=== PATIENT | female | born 1965 | race Caucasian/White ===

== ENCOUNTER → 2017-11-06 19:03 | Outpatient (CLI) | payer SELFPAY | PROVIDERS: Visit Provider Physician Assistant Surgical | DX: J02.9 Acute pharyngitis, unspecified (principal) | CPT/HCPCS: 87081 ==

== ENCOUNTER → 2020-06-21 14:52 | Outpatient (CLI) | payer MEDICAID, SELFPAY ==
[2020-06-21 14:40] VITALS: BMI 29.4
[2020-06-21 17:01] LABS: Vitamin D,25 Hydroxy 11.7 ng/mL
[2020-06-21 17:02] LABS: T4 Free Direct 0.89 ng/dL (0.76-1.46); Thyroid Stim Hormone (TSH) 3.04 uIU/mL (0.358-3.74)
== END ==
PROVIDERS: Referring Provider Internal Medicine Endocrinology, Diabetes & Metabolism; Visit Provider Internal Medicine Endocrinology, Diabetes & Metabolism
DX: E05.00 Thyrotoxicosis with diffuse goiter without thyrotoxic crisis or storm (principal); E55.9 Vitamin D deficiency, unspecified
CPT/HCPCS: 36415; 82306; 84439; 84443; 84481

== ENCOUNTER 2020-06-28 07:45 | Day surgery (SDC) | payer MEDICAID, SELFPAY ==
[2020-06-21 14:40] VITALS: BMI 29.4
[2020-06-28 08:08] VITALS: BP 107/53; PULSE 57; RESP 14; TEMP 36.8; O2SAT 96
--- NOTE | 2020-06-28 09:14 | RAD_ITS ---
STUDY: X-RAY - PELVIS AND RIGHT HIP REASON FOR EXAM: Right hip intra-articular steroid injection. TECHNIQUE: 2 fluoroscopic images of the pelvis and hip. COMPARISON: None. FINDINGS: There is intra-articular contrast in the right hip joint. There is right hip arthrosis. 11.4 seconds of fluoroscopy time was used. Electronically Signed: Obi Pedersen MD at 14:58 EST Tel , Service support , RAD/Fluoro Guided Needle Placement
--- NOTE | 2020-06-28 09:14 | PCM.OPRPT ---
Report of Operation Date of Procedure: 06/28/20 Description of Surgical Findings:: PREOPERATIVE DIAGNOSIS: Osteoarthritis of the right hip POSTOPERATIVE DIAGNOSIS: Osteoarthritis of the right hip PROCEDURE PERFORMED: Right hip intraarticular steroid injection under fluoroscopy guidance. ANESTHESIA: MAC. BLOOD LOSS: Minimal. COMPLICATIONS: None. DESCRIPTION OF PROCEDURE: History and physical of today was reviewed. Risks and benefits of the procedure were explained. The patient understood and agreed to proceed. Informed consent was obtained. IV inserted per routine protocol. The patient was taken to the operating room and placed in the supine position. The right hip area was prepped and draped in a sterile fashion using iodine x3. Under fluoroscopy guidance on AP view, the right hip joint was visualized. The skin and subcutaneous tissue was anesthetized with approximately 3 mL of 1% lidocaine using a 25-gauge regular needle approximately 3 cm cephalad to the right greater trochanter. Under direct visualization with fluoroscopy on an AP view, using a 22-gauge 5-inch spinal needle, the needle was advanced via the skin using the lateral approach. The tip of the needle was maneuvered and directed towards the superiormost aspect of the hip joint. Once the tip of the needle was at the vicinity of the joint, after negative aspiration for blood and positive aspiration of synovial fluid, a total of 1 mL of contrast was injected to confirm correct placement of the needle as well as halo spread around the hip joint. After repeated negative aspiration for blood and confirmation on AP as well as oblique view, a total of 10 mL of preservative-free 0.25% Marcaine with 80 mg of Depo-Medrol was injected easily. The needle was then removed intact. The patient experienced no sign or symptoms of intrathecal or intravascular injection. The patient experienced no paresthesia. The procedure was completed without any apparent difficulty or any complications. The patient appeared to tolerate it well. ASSESSMENT AND PLAN: This is a 55-year-old female with osteoarthritis of the right hip status post right hip intra-articular steroid injection under fluoroscopic guidance, patient will continue her current medications, patient will follow in approximately 2 weeks for reevaluation.
[2020-06-28] MEDS: MethylPREDNISolone Acetate 40 MG/ML Vial IM (09:32)
[2020-06-28] MEDS: Bupivacaine 0.25% 30 ML Vial (09:32)
[2020-06-28] MEDS: Lidocaine 1% (5 ml sdv) 5 ML Vial (09:33)
[2020-06-28 09:40] VITALS: BP 107/53; BP 113/60; PULSE 62; RESP 16; TEMP 36.4; O2SAT 97
[2020-06-28 09:45] VITALS: BP 104/43; BP 107/53; PULSE 72; RESP 16; O2SAT 97
[2020-06-28 09:50] VITALS: BP 102/60; BP 107/53; PULSE 63; RESP 16; O2SAT 97
[2020-06-28 09:55] VITALS: BP 101/67; BP 107/53; PULSE 54; RESP 16; TEMP 36.4; O2SAT 97
[2020-06-28 10:19] VITALS: BP 107/53
== END 2020-06-28 10:21 | disposition home or self-care (01) ==
LOC: SDC 07:46 → AC 07:47
PROVIDERS: PCP Student in an Organized Health Care Education/Training Program; Referring Provider Anesthesiology Pain Medicine; Visit Provider Anesthesiology Pain Medicine
PROC: 3E0U3GC Introduction of Other Therapeutic Substance into Joints, Percutaneous Approach (ICD-10-PCS; CPT 20610; principal; 2020-06-28 09:15)
DX: M16.11 Unilateral primary osteoarthritis, right hip (principal); I10 Essential (primary) hypertension; J43.9 Emphysema, unspecified; E05.00 Thyrotoxicosis with diffuse goiter without thyrotoxic crisis or storm; M79.7 Fibromyalgia; F17.200 Nicotine dependence, unspecified, uncomplicated; Z79.891 Long term (current) use of opiate analgesic; Z79.899 Other long term (current) drug therapy
CPT/HCPCS: 20610; 76000; 77002; J7120

== ENCOUNTER → 2020-10-11 10:58 | Outpatient (CLI) | payer MEDICAID, SELFPAY ==
[2020-10-11 12:40] LABS: Free T3 2.3 pg/mL (2.18-3.98); Thyroid Stim Hormone (TSH) 2.68 uIU/mL (0.358-3.74)
== END ==
PROVIDERS: PCP Student in an Organized Health Care Education/Training Program; Visit Provider Internal Medicine Endocrinology, Diabetes & Metabolism
DX: E05.00 Thyrotoxicosis with diffuse goiter without thyrotoxic crisis or storm (principal)
CPT/HCPCS: 36415; 84439; 84443; 84481

== ENCOUNTER 2021-09-07 12:55 | Outpatient (CLI) | payer MEDICAID, SELFPAY ==
--- NOTE | 2021-09-07 13:01 | RAD_ITS ---
: 1965 CLINICAL INDICATION: HIP PAIN, LEG LENGTH DISCREPANCY TECHNIQUE: X-ray bone length studies scanograms. This report was created using [email or web address] report generation technology. COMPARISON: None. FINDINGS: Single image of the right and left legs were obtained. The right femoral head is approximately 2 cm higher than the left femoral head. There is a total left knee prosthesis in good position. The medial left knee joint is approximately 1 cm higher on the right than on the left. The right ankle joint is approximately half a centimeter higher than the left ankle joint. RAD/Bone Length IMPRESSION: Elevation of the right femoral head, knee joint and ankle joint compared to the left. The right femoral head is 2 cm higher than the left femoral head. at 0236 Reported and signed by: Wild Hanley MD Electronically Signed: Wild Hanley MD at 2:35 EDT ,
== END 2021-09-07 23:59 | disposition home or self-care (01) ==
LOC: MTRAD 12:58
PROVIDERS: PCP Student in an Organized Health Care Education/Training Program; Referring Provider Physician Assistant Surgical; Visit Provider Physician Assistant Surgical
DX: M25.552 Pain in left hip (principal); M21.70 Unequal limb length (acquired), unspecified site
CPT/HCPCS: 77073

== ENCOUNTER 2021-09-19 13:16 | Outpatient (CLI) | payer MEDICAID, SELFPAY ==
[2021-09-19 15:36] LABS: Vitamin D,25 Hydroxy 29.8 ng/mL
[2021-09-19 15:51] LABS: Free T3 2.1 pg/mL (2.18-3.98); Thyroid Stim Hormone (TSH) 1.93 uIU/mL (0.358-3.74)
== END 2021-09-19 23:59 | disposition home or self-care (01) ==
LOC: BIMLAB 13:17
PROVIDERS: Nurse Practitioner Family; PCP Student in an Organized Health Care Education/Training Program; Referring Provider Internal Medicine Endocrinology, Diabetes & Metabolism; Visit Provider Internal Medicine Endocrinology, Diabetes & Metabolism
DX: E05.00 Thyrotoxicosis with diffuse goiter without thyrotoxic crisis or storm (principal)
CPT/HCPCS: 36415; 82306; 84439; 84443; 84481

== ENCOUNTER 2021-12-14 11:19 | Observation (INO) | payer MEDICARE, MEDICAID, SELFPAY ==
--- NOTE | 2021-12-02 11:21 | PCM.HP.BLA ---
History and Physical History and Physical? Patient Name: Mireille Redman: 1965 From:? BRIGITTE FRAGA PA-C? DATE OF SURGERY:? 12/14/2021 SCHEDULED PROCEDURE: direct anterior right total hip arthroplasty HISTORY OF PRESENT ILLNESS: Patient is a 56-year-old female with a chief complaint of left hip pain. Patient complains of pain with 2 year duration. The pain is 8 on a scale of 10. The pain is increased with weightbearing and activities of daily living including donning and doffing close. Patient reports start up pain. The pain is located over the groin. The patient states that the pain does awaken them at night. Activity modification include a reduced ability to perform activities of daily living. The patient does perceive that the affected leg is shorter than the other. or specifically, patient's major concern is that after having a left knee replacement the left leg feels 2 inches longer than the right previous scanogram was performed.? She is adamant that this leg length discrepancy did not exist prior to her left knee replacement. Previous treatments include physical therapy, pain management and oxycodone pain medications.? Additionally patient takes nonsteroidal anti-inflammatories for the pain.? All of which have offered minimal relief. REVIEW OF SYSTEMS: Review Of Systems: Constitutional: Reports change in appetite and weight change, but denies fever. Cardiovasular: Reports irregular heartbeat, but denies chest pain and heart murmur. Respiratory: Denies cough, pneumonia, shortness of breath, tuberculosis and wheezing. Gastrointestinal: Denies constipation, diarrhea, dysphagia, heartburn, nausea, rectal itching, bloody stools and vomiting. Genitourinary: . (F Genital Sx) Denies incontinence. Musculoskeletal: Reports gait disturbance, leg swelling, pain, trouble walking and weakness. Skin: Reports tattoo, but denies Raynaud's and history of shingles. Neurological: Reports ambulatory dysfunction and numbness/tingling but denies dizziness and tremor. Psychiatric: Reports anxiety, insomnia and stress. Hematologic/Lymphatic: Denies anemia, bleeding/bruising tendency and past transfusion. Reviewed and updated. PAST MEDICAL HISTORY: Advance Care Plan: No Advance Directives Effective Date: 08/01/2019 Past Medical History: Medical Problems: Emphysema, High Blood Pressure, Thyroid Disease, Graves Disease Accidents: None Surgical Hx: Gallbladder - (2008) [facility] Knee Replacement Lt - (11/24/2019) [facility] Anesthesia Complications: None Assistive Devices: Glasses - READING, DRIVING, Walker, Cane Reviewed and updated. 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 Personal Habits:? Cigarette Use: Light tobacco smoker (10 or fewer cigarettes/day).Smokeless Tobacco: Never Used Smokeless Tobacco.E-Cigarette Use: E-Cigarette Use.Alcohol: Has consumed alcohol in the past.Drug Use: Denies Use.Enjoy Exercising: Never Exercises. Reviewed and updated. VITALS: Ht: 65 Wt: 190lb Wt k.184 BMI: 31.6 BP: 138/90 Pulse: 85 Resp: 14 T: 97.1 T: 36.2C Pain Level: 9 O2SatR: 99 ALLERGIES: No Known Drug Allergy? MEDICATIONS: Meloxicam 7.5 mg 1 by mouth twice a day, Lisinopril 10 mg 1po qday, G-1 325 mg 1poq day, Albuterol Inhaler? 2 puffs as needed, Duloxetine HCL 60 mg 2 By mouth every day, Tylenol 8 Hour Arthritis Pain 650 mg every 4 hour as needed pain, Oxycodone HCL 5 mg 1-2 by mouth every 6 hours, Pantoprazole Sodium 40 mg 1 by mouth every day PRE-OP EXAM:? General appearance:NORMAL? ? ? Other: Eyes: Conjunctivae and lids: NORMAL? Pupils: ERR Ears, Nose, Mouth, and Throat: NORMAL? Other: Inspection of lips, teeth and gums: NORMAL? ?Other: Neck: Examination of neck: no masses noted. Respiratory: Assessment of respiratory effort: NORMAL? ?Other: ?Auscultation of lungs: clear to auscultation no wheezes, rhonchi or rales. Cardiovascular:? Auscultation of heart: regular rate and rhythm, no murmurs, gallops or rubs. Exam of carotid arteries: NORMAL? ?Other: Gastrointestinal:? Exam of abdomen: soft, nontender, nondistended bowel sounds present. Lymphatic:? Palpation of nodes in neck:? NORMAL? ? ?Other: ? Palpation of nodes in Axillae: NORMAL? ?Other: Neurological: see below Psychiatric:? Orientation to time, place and person: NORMAL? ? ?Other: ?Mood and affect: NORMAL? ?Other: PHYSICAL EXAMINATION: Exam: Const: Appears healthy.? No signs of apparent distress present.? Alert and oriented x 3.? Musculo: Antalgic gait? Hips: ?Insp/Palp: Right hip flexion 65 degrees, internal rotation neutral with reproducible groin pain, external rotation 20 degrees Left hip flexion 70 degrees with obligatory external rotation, internal rotation neutral with reproducible groin pain, external rotation 20 degrees Left knee flexion 125 degrees, full extension? Skin: Skin is warm, dry and intact.? Neuro: Sensation to light touch is intact in the lower extremities deep peroneal, lower extremities dorsal cutaneous, lower extremities saphenous, lower extremities sural and lower extremities tibial nerve distribution. IMAGING STUDIES: previous radiographs show joint space narrowing, subchondral sclerosis and osteophyte formation consistent with Severe stage IV osteoarthritis of the right hip with subchondral cysts associated with bony collapse and flattening of the femoral head.? Additionally on the pelvis x-rays patient has a tilt of the pelvis with the right iliac crest and hip Center higher than the left. additionally, patient has evidence of severe right hip osteoarthritis however without femoral head collapse at this time. 5 views of the lumbar spine AP, lateral, flexion extension laterals, and cone down L-S views reviewed with the patient today Stable alignment of the spine in the sagittal plane with mild loss of lumbar lordosis.? There is multiple levels of degenerative disc disease.? No acute fractures or bony lesions are appreciated.? In the? Coronal plane patient does have mild scoliosis with obliquity of the pelvic bony structures. Scanogram was performed the hospital it's is also reviewed.? Does show that her right hip is 2 cm higher than the left however measurements from right hip Center of rotation to set of ankle and left hip Center rotation centered the ankle show less than 5 mm difference in overall length of the extremity.? The leg length discrepancy appreciated on stimulation and by the patient likely has significant underlying etiology at her pelvic obliquity. IMPRESSION: 1. grade IV osteoarthritis Right hip 2. Emphysema 3. High Blood Pressure 4.? Thyroid Disease-Graves Disease PLAN: Patient denies history of DVT or PE, open wounds or sores over the body, no allergies to antibiotics and no current antibiotic use. No current dental issues Aspirin 81 twice a day ?4 weeks for DVT prophylaxis postoperatively At this time patient has consented to proceed with a direct anterior right total hip arthroplasty.? Dr. Vaca did discuss and review with the patient all treatment options including surgical versus nonsurgical options.? Patient does wish to proceed with the above-stated procedure.? Potential risk, benefits, and complications of the procedure were discussed in detail including but not limited to , infection, nerve and blood vessel damage, persistent pain, numbness, tingling, paresthesias, blood clot, pulmonary embolism, and requirement for possible further surgery.? The patient expressed full understanding and has no further questions for the doctor.? Patient does agree to proceed with the above-stated procedure and has signed the surgery consent form. I have reviewed the [place] Automated Rx Reporting System (OARRS) report for this patient for refill pattern and other prescriber involvement as part of the appropriate surveillance for the provision of acute and chronic controlled medications.? The report was requested and reviewed on the date of this entry and was considered in the prescribing process. Discussed with the patient the risks associated with the COVID-19 virus including the risk of exposure while at the hospital.? The patient was reassured local hospitals have low infection rates and taken all necessary precautions to limit patient exposure to COVID-19.? Limiting the patient's time in the hospital may decrease their exposure to COVID-19.? The patient was notified that we will need to comply with any screening or testing the hospital wishes to perform and that surgery may be delayed for any positive test results. ___? I have re-examined the patient.? There are no clinical changes since date of exam. ___? See progress notes for changes. ___? Dictated on admission Date: ? ? ?Time:
[2021-12-14] VITALS (12 sets, daily range): BP systolic 101–185; BP diastolic 69–92; PULSE 58–79; RESP 16–18; TEMP 36.4–36.8; O2SAT 96–100; BMI 32.3
--- NOTE | 2021-12-14 10:51 | OP.PCM_ITS ---
Report of Operation Date of Procedure: 12/14/21 Pre-Operative Diagnosis: Right hip primary osteoarthritis Post-Operative Diagnosis: Right hip primary osteoarthritis Surgery/Procedure Performed:: Right minimally invasive direct anterior total hip replacement Description of Surgical Findings:: Stable hip with equal leg length Surgeon: Heriberto Vaca handmade tile artist: Kaushik Max Type of Anesthesia: Spinal Anesthesiologist: Jose Pierce Special Medications: 2 g Ancef, 1 g TXA at incision, 1 g TXA closure, 10 mg Decadron, joint cocktail (5 mg Duramorph, 30 mL of 0.5% Ropivicaine, 1000 units of epinephrine, 30 mg of Toradol) Specimen's removed: Bony cuts Estimated Blood Loss (mL): 250 Fluids Replaced: 1500 mL crystalloid Description of Procedure: Components used: 1. Accolade 2 Brandeis femoral stem size 3 127? 2. Brandeis trident 2 acetabular shell size 52 mm 3. Cris X3 polyethylene E 4. Cris Biolox delta 36mm, -5mm femoral head Brief history operative indications: 56 yo F who failed conservative measures for their hip osteoarthritis. X-rays were consistent with osteoarthritis including joint space narrowing, osteophyte formation and subchondral cysts. Total hip replacement was discussed with the patient with risks and benefits including but not limited to blood loss, DVTs, PEs, neurovascular damage, dislocation, general risks of anesthesia including loss of life. Patient demonstrated an understanding medical clearance is obtained the patient was consented for surgery. Procedure: On the date of procedure the patient's right hip was marked in the preoperative area. Patient was then taken back to the operating room where anesthesia assumed control of the C-spine and airway and administered anesthetic. Patient was transferred to the operating table and placed in the supine position. The hips were placed at the break of the bed and a sacral bump was placed. The right lower extremity was then prepped out in a sterile fashion using chlorhexidine while the surgeon scrubbed. The PA was vital in the positioning of the patient. Upon reentering the room the right lower extremity was draped in the standard orthopedic fashion and the incision was marked. A timeout was called and everyone agreed upon the side, the site, the procedure be performed, antibody given, and patient's identity. At this time incision was made through skin, subcutaneous tissue, and fat down to fascia. The fascia was then incised and the TFL was retracted laterally. A retractor was placed on the lateral border of the femoral neck. Attention was directed to the inferior portion of the approach and all crossing vessels were identified and appropriately coagulated. A retractor was then placed on the medial portion of the femoral neck. The anterior capsule was then cleared of all soft tissue and then H shaped capsulotomy was made. The retractors were then placed inside the capsule. The femoral neck was identified and a cleanup cut was made. At this time a power corkscrew was used to remove the femoral head. Attention was then turned toward the acetabulum where the soft tissues were appropriately retracted and the acetabulum was sequentially reamed to 52 mm. A 52 mm cup was then selected and impacted into place. Acetabular liner was impacted into place and locking mechanism was verified. The position of the acetabular cup was then verified under live fluoroscopy. Attention was then turned to the femur. Soft tissue releases on the medial and lateral femoral neck were appropriately done, the leg was externally rotated and lateralized. A Finley retractor was placed medially and proximally to the greater trochanter this allowed appropriate visualization and exposure of the femoral canal. Rongeour was then used to remove excess lateral bone. A canal finder and entry broach were used to open the proximal canal. Once we verified we were down the femoral canal we subsequently broached up to a size 3 femur. The appropriate neck was placed in the previously selected head was trialed with a -5 mm neck. Traction was pulled and the hip was reduced with internal rotation. Once it was appropriately reduced and stability was checked. There was minimal shuck, equal leg lengths and appropriate stability with hyperextension and external rotation as well as with 90? flexion and internal rotation. Fluoroscopy was then also used to verify the position of the components and leg lengths using the contralateral side for comparison. The trial components were then dislocated the proximal femur was again exposed and the components were removed from the wound. The final components were verified and opened. The wound was copiously irrigated out with normal saline. The acetabulum was checked for any residual debris. The final components were placed and impacted. Traction and internal rotation were again used to reduce the hip. After adequate reduction the hip remained stable with appropriate leg lengths. The final components were once again checked with live fluoroscopy and were found to be satisfactory. The wound was then copiously irrigated with normal saline once more, and hemostasis was obtained. Closure was then done using #1 Vicryl runner to close the fascia. A 2-0 vicryl interuppted sutures were used to close the subcutaneous skin. A 3-0 Monocryl and Steri-Strips were used for final skin closure. A Silverlon dressing was placed. Patient was awakened by anesthesia and transferred to the [facility]. Patient was then transferred to the PACU for recovery. During the course of the procedure the physician professor of marketing (PE) played a vital role. Their intimate knowledge of my steps in the procedure aided in safe and expedient completion of the procedure. The PE played a vital rolls in positioning particularly in obtaining the appropriate positioning of the sacral bump. The PE was also vital in the retraction of soft tissues during the exposure and especially the femoral work as this is a vital part of the procedure to prevent complications and fractures. The PE was also vital and protecting soft tissues during times of bony cuts and reaming. He also played a vital role in closure with my direct supervision. The PE was also important during reduction and dislocation of the joint and trials intraoperatively. Postoperative plan: Patient will get 24 hours postop antibiotics. Patient will get in-house physic al therapy and will be weight-bear as tolerated. Patient will follow up in office in 2 weeks for a wound check and x-rays. Aspirin 81 mg twice daily. Complications No intraoperative complications Admit VTE Documentation VTE Present on Admission: No VTE Mechan Device Prophylaxis: SCD's and Thigh High CARRI Hose VTE Pharm Prophylaxis ordered?: Yes
--- NOTE | 2021-12-14 11:15 | RAD_ITS ---
STUDY: INTRAOPERATIVE FLUOROSCOPY TECHNIQUE: The examination was performed with referring physician in attendance. Under fluoroscopic observation, fluoroscopic images were obtained. Radiologist was not present for the study. Radiologist did not perform the procedure. This dictation is for documentation of the radiation dosage only. There is no interpretation of the images. TOTAL NUMBER OF IMAGES: 1 COMPARISON: None RADIATION DOSE: 1.1 mGy FLUOROSCOPY TIME: 7.7 seconds REASON FOR EXAM: PAIN Female, 56 years old. FINDINGS: Right total hip arthroplasty. RAD/Hip 1 view with Pelvis IMPRESSION: Fluoroscopic assistance images were obtained. Dictation for documentation purposes only. Electronically Signed: Lalit Carlos MD at 17:13 EDT ,
[2021-12-14] MEDS: Celecoxib 200 MG Capsule 400 MG PO (11:26)
[2021-12-14] MEDS: Acetaminophen 500 MG Tablet 1000 MG PO ×3 (11:26→21:37)
[2021-12-14] MEDS: Lactated Ringers 1,000 ML 999 ML IV ×2 (11:26→15:20)
[2021-12-14] MEDS: Gabapentin 600 MG Tablet PO (11:26)
[2021-12-14 12:16] LABS: Bedside Glucose 112 mg/dL (74-106)
[2021-12-14] MEDS: Cefazolin 2 GM in 0.9% Normal Saline 100 ML IV (13:35)
[2021-12-14] MEDS: dexAMETHasone 10 MG/ML Vial IV (13:45)
[2021-12-14] MEDS: TXA 1000mg in NS100 100ml (IVPB at Incision) 660 MG IV (13:45)
[2021-12-14] MEDS: TXA 1000mg in NS100 100ml (IVPB at Closure) 660 MG IV (14:45)
--- NOTE | 2021-12-14 15:25 | RAD_ITS ---
STUDY: X-RAY - PELVIS AND RIGHT HIP REASON FOR EXAM: Female, 56 years old. Post Op -- AP both hips on single jamie/lateral of op hip PACU TECHNIQUE: 2 views of the pelvis and hip. COMPARISON: 09/07/2021 FINDINGS: Please see the impression. RAD/Hip Min 2 Views (Portable) IMPRESSION: Interval right total hip arthroplasty. No radiographic evidence of hardware complication or periprosthetic fracture. Advanced osteoarthritis of the left hip joint. Electronically Signed: Leobardo Donahue MD at 16:09 EDT ,
[2021-12-14] MEDS: Lactated Ringers 1,000 ML 125 ML IV (17:01)
[2021-12-14] MEDS: Morphine 4 MG/ML Syringe IV (17:57)
[2021-12-14] MEDS: Ketorolac 15 MG/ML Vial IV (17:58)
[2021-12-14] MEDS: Aspirin 81 MG TAB.CHEW PO (17:59)
[2021-12-14] MEDS: Cefazolin 1 GM/50 ML BAG IV (21:36)
[2021-12-14] MEDS: Senna/Docusate Sodium 1 Tablet 2 TABLET PO (21:38)
[2021-12-14] MEDS: DULoxetine Hcl 60 MG Capsule PO (21:38)
[2021-12-14] MEDS: oxyCODONE 5 MG Tablet PO (21:48)
--- NOTE | 2021-12-15 | HIP_PTH ---
PATIENT: IRMA CEVALLOS LOC: [facility] U#:[id number] AGE/SX: 56/F ROOM: OK319 RE12/14/[address]: Dr. Heriberto Vaca MD : 1965 BED: 1 DIS: 12/15/2021 SPEC #: [id number] RECD: 12/15/21 11:08 STATUS: JUMA TEMPLE #: [id number] JF: 12/15/21 00:[address]: Heriberto Vaca DEPT: SURGICAL PATHOLOGY RECD BY: Raheem Gaming ENTERED: 12/15/21 11:08 SP TYPE: TOTAL HIP OTHR DR: DO Dr. Rufino Chahal Dr., DO Dr. Scott Mollison, MD Tissues: Hip, NOS Procedures: Decalcification bone/plaque Surgery Specimen Level IV HEADER OPERATION: ERAS, total hip anterior approach PRE-OP DIAGNOSIS: Grade IV osteoarthritis right hip TISSUE SUBMITTED: Right femoral head MICROSCOPIC DIAGNOSIS Right femoral head, total hip replacement/resection: Femoral head with degenerative osteoarthritic changes. Fragments of fibroadipose tissue, fibroconnective tissue, skeletal muscle tissue and reactive synovial tissue. SJ:yaneli 12/19/2021 MICROSCOPIC DESCRIPTION Slides are reviewed. GROSS DESCRIPTION Received is one container labeled with the patient's name and designated right femoral head. The specimen consists of a light dickson femoral head measuring 5 x 4.8 x 4.7 cm. The articular surface displays prominent osteophyte formation, eburnation and bone erosion. Also present in the specimen container are multiple irregular fragments of bone and bone reamings and pink-yellow soft tissue measuring in aggregate 9.5 x 8 x 2 cm. Electrolysis Needle Operator sections are submitted in two cassettes as follows: 1 - soft tissue, 2 - bone after decalcification. / AM:yaneli 12/15/2021 TC:5 CPT: 42705, 56117
[2021-12-15 02:00] VITALS: BP 126/67; PULSE 68; RESP 18; TEMP 36.6; O2SAT 98
[2021-12-15 04:23] VITALS: BP 142/74; PULSE 84; RESP 16; TEMP 36.7; O2SAT 97
[2021-12-15] MEDS: Cefazolin 1 GM/50 ML BAG IV (04:35)
[2021-12-15] MEDS: Acetaminophen 500 MG Tablet 1000 MG PO ×2 (04:37→14:29)
[2021-12-15 07:28] LABS: Hematocrit 37.7 % (37-47); Hemoglobin 12.6 g/dL (12.0-15.0); Mean Corp Hgb Conc 33.4 g/dL (32-36); Mean Corpuscular Hgb 31.4 pg (27.0-32.0); Mean Platelet Vol. 9.8 fl (6.2-12.0); Platelet Count 345 K/mm3 (150-450); RBC Distribution Width CV 12.8 % (11.6-14.6); RBC Distribution Width SD 44.2 fl (35.1-43.9); Red Blood Count 4.01 M/mm3 (4.2-5.4); White Blood Count 19.1 K/mm3 (4.4-11.0)
[2021-12-15] MEDS: Senna/Docusate Sodium 1 Tablet 2 TABLET PO (08:13)
[2021-12-15] MEDS: Lisinopril 10 MG Tablet PO (08:13)
[2021-12-15] MEDS: Pantoprazole Sodium 40 MG Tablet PO (08:13)
[2021-12-15] MEDS: Famotidine 20 MG Tablet PO (08:13)
[2021-12-15] MEDS: Aspirin 81 MG TAB.CHEW PO (08:13)
[2021-12-15] MEDS: Cholecalciferol (Vit D3) 125 MCG CAPSULE (5,000 UNITS) PO (08:13)
[2021-12-15] MEDS: DULoxetine Hcl 60 MG Capsule PO (08:13)
[2021-12-15] MEDS: Ensure Surgery 237 ML LIQUID PO (08:13)
[2021-12-15] MEDS: oxyCODONE 5 MG Tablet PO ×2 (08:13→14:08)
[2021-12-15 08:18] VITALS: BP 124/54; PULSE 64; RESP 18; TEMP 37.2; O2SAT 96
[2021-12-15 08:18] LABS: Anion Gap 6 (5-15); BUN 12 mg/dL (7-18); BUN/Creat Ratio 17.9 RATIO (10-20); Chloride 108 mmol/L (98-107); Creatinine, Serum 0.67 mg/dL (0.55-1.02); EST Glomerular Filtration Rate 97 mL/min (>60); Est Glom Filt Rate - Afr Amer 117 mL/min (>60); Estimated Creatinine Clearance 84.37 ml/min; Glucose 176 mg/dL (74-106); Potassium 4.1 mmol/L (3.5-5.1); Sodium Level 140 mmol/L (136-145)
--- NOTE | 2021-12-15 10:35 | PN.ORTHO_ITS ---
Subjective Subjective The patient was sitting in bedside chair upon examination. Patient denies any chest pain, shortness of breath, dizziness, lightheadedness, nausea or vomiting, or calf pain. Pain is controlled on medications. No adverse overnight events. Patient is overall doing very well. She has participated with therapy yest brennanay. She has been up walking. She is pleased with outcome of surgery already. Objective Data Objective Data Vital Signs: Vital Signs Temp Pulse Resp BP Pulse Ox O2 Del Method O2 Flow Rate 99.0 F 64 18 124/54 H 96 Room Air 4 12/15/21 08:18 12/15/21 08:18 12/15/21 08:18 12/15/21 08:18 12/15/21 08:18 12/15/21 08:18 12/14/21 16:58 FiO2 100 12/14/21 18:00 Oxygen Flow Rate (L/min) 4 Oxygen Delivery Method Room Air Weight: 88 kg Body Mass Index (BMI) 32.3 Intake & Output: Intake and Output for Last 24 Hours 12/13/21 12/14/21 12/15/21 23:59 23:59 23:59 Intake Total 2482 / 2482 950 / 950 Output Total 2500 / 2500 Balance -18 / -18 950 / 950 Lab / Micro Data Result Diagrams: 12/15/21 07:18 12/15/21 07:18 Labs: Laboratory Results - last 24 hr 12/14/21 10:33: POC Glucose 112 H 12/15/21 07:18: WBC 19.1 H, RBC 4.01 L, Hgb 12.6, Hct 37.7, MCV 94.0, MCH 31.4, MCHC 33.4, RDW Std Deviation 44.2 H, RDW Coeff of Cedric 12.8, Plt Count 345, MPV 9.8 12/15/21 07:18: Sodium 140, Potassium 4.1, Chloride 108 H, Carbon Dioxide 26.0, Anion Gap 6, BUN 12, Creatinine 0.67, Estim Creat Clear Calc 84.37, Est GFR (MDRD) Af Amer 117, Est GFR (MDRD) Non-Af 97, BUN/Creatinine Ratio 17.9, Glucose 176 H, Calcium 9.0 Radiography Diagnostic Testing: Radiology Impression Hip/Pelvis X-Ray 12/14/21 11:15 IMPRESSION: Fluoroscopic assistance images were obtained. Dictation for documentation purposes only. Electronically Signed: Lalit Carlos MD at 17:13 EDT , Hip X-Ray 12/14/21 15:25 IMPRESSION: Interval right total hip arthroplasty. No radiographic evidence of hardware complication or periprosthetic fracture. Advanced osteoarthritis of the left hip joint. Electronically Signed: Leobardo Donahue MD at 16:09 EDT , Physical Exam Narrative Vital signs stable and afebrile. Right thigh is soft and supple SCDs and CARRI hose are in place bilaterally Patient is able to plantarflex and dorsiflex actively. Sensation is intact to light touch to saphenous, sural, superficial and deep peroneal, and tibial distribution. Dressing is clean dry and intact. Negative Homans bilaterally, negative signs and symptoms of DVT. Const alert, oriented x3 and no apparent distress Assessment & Plan Assessment/Plan (1) Status post total replacement of right hip: PLAN: 1. S/P direct anterior right total hip arthroplasty POD #1 2. Continue Pain Medications: Tylenol, meloxicam, oxycodone. Do not take any other nonsteroidal anti-inflammatories while using meloxicam/Mobic. Patient also is followed by pain management for her back and hips. She takes oxycodone prescribed by the pain management. We did reach out to Dr. Sanders and they would like us to control the medication for the first 6 weeks postoperatively. 3. DVT Prophylaxis: Take 81 mg aspirin twice daily for 4 weeks postoperatively for DVT prophylaxis. Patient denies previous history of DVT or pulmonary embolism 4. PT/OT: Weightbearing as tolerated with walker 5. H & H: 12.6/37.7, asymptomatic. Postoperative anemia secondary to acute blood loss from surgery without any intra operative complications. 6. Reactive leukocytosis: Currently 19.1, afebrile. Patient did receive Decadron intraoperatively. No clinical evidence of underlying infection. Suspected reactive leukocytosis. 7. Continue postoperative medical management per medicine 8. Encouraged Incentive Spirometry 9. Disposition: Patient overall is doing very well. Plan will be for discharge home today as long as patient tolerates therapy, pain is well controlled, and cleared by medicine. We did discuss narcotics. Our office did reach out to Dr. Sanders and would like us to control the medication for 6 weeks postoperatively. I discussed this with the patient. Patient has outpatient physical therapy established. She will follow-up per postop instructions. Patient will contact her office with any concerns or questions upon discharge. I also discussed dressing with the patient for 5 days postoperatively. I would like her to protect the incision with a 4 x 4 dressing or washcloth until healed 4 weeks postoperatively. We discussed the elastic band on her underwear coming across the incision and to protect this area. She voiced understanding agreement. I have reviewed the [place] Autom[employer] Rx Reporting System (OARRS) report for this patient for refill pattern and other prescriber involvement as part of the appropriate surveillance for the provision of acute and chronic controlled medications. The report was requested and reviewed on the date of this entry and was considered in the prescribing process. This dictation was created using voice recognition software. Phonetic and/or grammatical errors may exist.
--- NOTE | 2021-12-15 10:40 | DCINST_ITS ---
Discharge Instructions Diet Discharge Diet: No restrictions Activity Discharge Activity: May Not Drive (No driving for 6 weeks postoperatively. Must also be able to walk 100 feet without the use of cane or walker) May shower in (days): 1 (only if incision is dry and without drainage. Do NOT soak/submerge in tub/pool/urias/stream/hot tub.)) Ice area for (Minutes): 20 (Every 1-2 hours while awake[address] place barrier between ice and skin.) Weight Bearing Status: Weight bearing as tolerated Keep extremity elevated above heart level: Operative Extremity Dressing / Incision Call your doctor if your incision/area has: Continuous Slow Oozing, Sudden Increased Bleeding, Increased Pain/ Swelling, Increased Redness and Foul Smell ing Discharge Call your doctor if you observe: Fever of 101 or Higher, Shortness of breath, Chest pain, Calf discomfort and Uncontrolled pain Remove Dressing in: 4 days (Okay to remove dressing on December 19, 2021. After removal of dressing must use 4 x 4 dressing or washcloth to protect the incision for 4 weeks postoperatively.) Additional Dressing/Incision Instructions:: Follow [facility] Post-op Instructions. Once postoperative dressing has been removed, only use gentle soap and water over the incision. Do not use any ointments, Neosporin, salves, alcohol pads over the incision for 6 weeks postoperatively. Do not submerge underwater for 6 weeks postoperatively. Continue with CARRI hose/elastic stockings for 2 weeks postoperatively. May remove at nighttime but needs to be placed back on the leg during the day. Do NOT use alcohol with narcotic pain medication. Do NOT make important decisions while taking narcotic medication. If you have problems with taking your medication (rash, itching, nausea, etc.) call the office at once. Follow Up Care Test Results: Test results from this visit will be discussed in further detail at your follow- up appointment, if applicable. Discharge Plan Admission Admit Date/Time: 12/14/21 11:19 Attending Provider: Heriberto Vaca Primary Care Provider: Rufino Tanner Consulting Providers: Stephanie Unger ; Ronald Hall ; Jose Moyer Discharge Orders/Prescriptions Prescriptions: New acetaminophen 500 mg Tablet 1,000 mg PO Q8 Qty: 100 0RF Rx Instructions: Do not take more than 3000 mg Tylenol in a 24-hour period. aspirin 81 mg Tablet,Chewable 81 mg PO BIDCM Qty: 60 0RF Rx Instructions: Take 81 mg aspirin twice daily for 4 weeks postoperatively for DVT prophylaxis oxycodone 5 mg Tablet 5 - 10 mg PO Q4H PRN PRN (Reason: Pain Score 4-10) 5 Days Qty: 60 0RF sennosides-docusate sodium [Stool Softener-Stimulant Laxat] 8.6-50 mg Tablet 2 tab PO BID Qty: 20 0RF Rx Instructions: Take until first bowel movement, then as needed Continued albuterol sulfate 90 mcg/actuation HFA aerosol inhaler 2 puff INHALATION Q4H PRN (Reason: Asthma) lisinopril 10 mg tablet 10 mg PO DAILY Label Comments: TAKE 1 TABLET BY MOUTH EVERY DAY duloxetine 60 mg capsule,delayed release(DR/EC) 60 mg PO BID pantoprazole 40 mg tablet,delayed release (DR/EC) 40 mg PO DAILY cholecalciferol (vitamin D3) 125 mcg (5,000 unit) tablet 5,000 ea PO DAILY Label Comments: TAKE 1 TABLET BY MOUTH EVERY DAY meloxicam 7.5 mg tablet 7.5 mg PO BID Label Comments: TAKE 1 TABLET BY MOUTH TWICE A DAY Discontinued acetaminophen 500 MG tablet 1,000 mg PO Q6H PRN (Reason: Pain 1-10 Or Fever) oxycodone 5 mg Capsule 5 mg PO BID Referrals / Follow Up: Physical,Therapy [Other] - 12/16/21 1:30 pm Rufino Tanner DO [Primary Care Provider] - Kaushik Max PA-C [PHYSICIAN PIPE PRODUCTION WORKER] - 12/30/21 2:30 pm Disposition Disposition (needs filled in before D/C Order can be placed): Home, Self Care
--- NOTE | 2021-12-15 11:35 | CASEMGMT ---
NAGA PEREZ SPEECH PATHOLOGY ASSISTANT CM to room to meet with patient for initial transition planning/care coordination assessment. NAGA PEREZ introduced self and role at [facility].? Pt voices understanding and consents to assessment at this time.? Pt sitting up in chair in no distress at this time.? Pt is A/O at this time and answers all questions appropriately.?? Care providers, pharmacy, and demographics verified/updated at this time. PCP: Dr Tanner Specialists: Dr Vaca-ortho, Dr Sanders--pain mgmt @ [facility] Preferred Pharmacy: [facility] Insurance:[employer] Prescription Benefit:?Yes Living Will/HPOA:?States does not have LW or HCPOA .? Provided information. Pt states does not want to talk with SW at this time to complete paperwork.? Pt has [employer] Service rac card with contact number. Educated patient that, if she chooses, can come back to [facility] and meet with a SW as an outpatient to complete health care advanced directives. Patient expresses understanding. Pt states she is still legally , but is . Pt made aware would be medical decision maker for her, unless HPOA paperwork is completed. Pt voices understanding and states she is okay w/this. LNOK: Pt is still legally , but is . Dtr, Karma. Son, Tomás Living Arrangements: Lives w/son and son's girlfriend, Laurel, who will be able to assist her as needed. Pt lives in a one-story home w/basement. 3 steps to enter home and flight of stairs to shower in basement. Therapy to work w/pt w/stairs this afternoon. Pt was independent prior to surgery. Transportation:?Pt states she drives. will take her home @ d/c. Laurel will take her to appts. DME: Has the following DME:?shower chair, RTS, cane, financial developer, cane, lift chair, grab bars, walker, rollator, polar care. ?Pt states no need for further DME at this time.? HHC/SNF: No hx of SNF. Has had HHC in the past. Pt states she is scheduled for OP therapy @ [facility]. 1st appt is tomorrow @ 1:30 PM. Pt wishes to return home and states has no concerns with going home at time of discharge.? Pt states she smokes less than 1 cigarette/day and drink ETOH once in awhile, stating usually when on vacation or special occasions. Pt voices no concerns/needs at this time.? Advised pt to ask for CM if any questions/concerns/needs arise.? Voices understanding. PLAN:??Home w/OP therapy and discharge plans in place. Yamilex TAVARES RN CM
--- NOTE | 2021-12-15 14:04 | CHAPLAIN ---
Type of Pastoral Visit _x__ Initial Visit ___ Follow-up Visit ___ On-call Visit ___ General Patient Visit ___ Spiritual Assessment ___ Family Conference ___ Bereavement ___ Rapid Response ___ Code Blue ___ Other (describe below) Pastoral Care Referral From _x__ Patient ___ Family ___ Nurse ___ Physician ___ Transcripter ___ Supervisor Coke Handling ___ Other (describe below) Sacrament/Intervention _x__ Active listening ___ Anointing ___ Hindu ___ Bereavement ___ Communion ___ Patito exploration ___ ___ Life review _x__ Prayer ___ Reconciliation ___ Sacrament of Sick ___ Supportive presence ___ Wedding ___ Other (describe below) Pastoral Comments patient reports to be discharged soon; pt thankful for good surgery and optimistic about result; pt has had difficulty before from surgery but relieved in this outcome; pt states she will have another surgery soon but thankful to God for He has been good to me; prayer welcomed for recovery
[2021-12-15 14:20] VITALS: BP 143/85; PULSE 74; RESP 17; O2SAT 99
--- NOTE | 2021-12-15 14:22 | PCM.PN.HOSP ---
Subjective Subjective Feels well. Hip feeling well. Objective Data Objective Data Vital Signs: Vital Signs Temp Pulse Resp BP Pulse Ox O2 Del Method O2 Flow Rate 37.2 C 64 18 124/54 H 96 Room Air 4 12/15/21 08:18 12/15/21 08:18 12/15/21 08:18 12/15/21 08:18 12/15/21 08:18 12/15/21 08:20 12/14/21 16:58 FiO2 100 12/14/21 18:00 Oxygen Flow Rate (L/min) 4 Oxygen Delivery Method Room Air Weight: 88 kg Body Mass Index (BMI) 32.3 Intake & Output: Intake and Output for Last 24 Hours 12/13/21 12/14/21 12/15/21 23:59 23:59 23:59 Intake Total 2482 / 2482 950 / 950 Output Total 2500 / 2500 Balance -18 950 / 950 Lab / Micro Data Result Diagrams: 12/15/21 07:18 12/15/21 07:18 Labs: Laboratory Results - last 24 hr 12/15/21 07:18: WBC 19.1 H, RBC 4.01 L, Hgb 12.6, Hct 37.7, MCV 94.0, MCH 31.4, MCHC 33.4, RDW Std Deviation 44.2 H, RDW Coeff of Cedric 12.8, Plt Count 345, MPV 9.8 12/15/21 07:18: Sodium 140, Potassium 4.1, Chloride 108 H, Carbon Dioxide 26.0, Anion Gap 6, BUN 12, Creatinine 0.67, Estim Creat Clear Calc 84.37, Est GFR (MDRD) Af Amer 117, Est GFR (MDRD) Non-Af 97, BUN/Creatinine Ratio 17.9, Glucose 176 H, Calcium 9.0 Radiography Diagnostic Testing: Radiology Impression Hip/Pelvis X-Ray 12/14/21 11:15 IMPRESSION: Fluoroscopic assistance images were obtained. Dictation for documentation purposes only. Electronically Signed: Lalit Carlos MD at 17:13 EDT , Hip X-Ray 07/06/22 15:25 IMPRESSION: Interval right total hip arthroplasty. No radiographic evidence of hardware complication or periprosthetic fracture. Advanced osteoarthritis of the left hip joint. 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 Was seeing Dr. Isaak Rivera and was instructed to follow up with PCP. No treatment at this time. PLAN: Plan Medically stable for discharge. Will sign off. Charges/Coding Visit Charges Inpatient E&M: 29485 Subs Hosp L1
== END 2021-12-15 14:44 | disposition home or self-care (01) ==
LOC: SDC 13:04 → MS3 13:04
PROVIDERS: Admitting Provider Specialist; PCP Student in an Organized Health Care Education/Training Program; Referring Provider Specialist; Visit Provider Specialist
PROC: (CPT 27284; principal; 2021-12-14 11:50)
DX: M16.11 Unilateral primary osteoarthritis, right hip (principal); J43.9 Emphysema, unspecified; E05.00 Thyrotoxicosis with diffuse goiter without thyrotoxic crisis or storm; I10 Essential (primary) hypertension; M41.9 Scoliosis, unspecified; F17.290 Nicotine dependence, other tobacco product, uncomplicated; Z79.899 Other long term (current) drug therapy; F32.A Depression, unspecified; K21.9 Gastro-esophageal reflux disease without esophagitis
CPT/HCPCS: 27130; 01214; 36415; 73501; 73502; 76000; 80048; 82962; 85027; 88305; 88311; 96361; 96365; 96366; 96375; 97110; 97162; 97166; 97530; 97535; 99218; 99251; 99406; C1776; J7120; G0378; G0463; J2405; J3475

== ENCOUNTER → 2022-01-11 | Outpatient (CLI) | payer MEDICARE, MEDICAID, SELFPAY ==
--- NOTE | 2022-01-11 13:51 | VDLE_ITS ---
Reason For Study: RLE pain RIGHT GSV is normal. CFV is compressible, spontaneous, phasic, competent and demonstrates normal augmentation. FV is compressible, spontaneous, phasic, competent and demonstrates normal augmentation. POP V is compressible, spontaneous, phasic, competent and demonstrates normal augmentation. T/P Trunk is compressible. PTV is compressible. Procedure This is a venous duplex using B-mode, color flow and spectral Doppler. Exam performed in department. The study was technically difficult. PT'S SKIN SENSITIVE TO TOUCH. Unable to assess PER V. A preliminary report was called and/or faxed to @ 2:32 pm @ [phone]. VL/Venous Duplex US, Unilateral Interpretation Summary Deep veins of the right lower extremity are patent and compressible segmentally . There is no evidence of right lower extremity deep vein thrombosis. Valvular competence lino ears intact within the proximal deep venous system on the right . The right great saphenous vein a ppears patent and compressible segmentally. The right peroneal vein was not assessed. Ordering Physician: Heriberto Vaca Referring Physician: Rufino Tanner Performed By: Talisha Sanchez, NORIS, RVT
== END | disposition home or self-care (01) ==
LOC: CVS 13:48
PROVIDERS: PCP Student in an Organized Health Care Education/Training Program; Referring Provider Specialist; Visit Provider Specialist
DX: M79.661 Pain in right lower leg (principal)
CPT/HCPCS: 93971

== ENCOUNTER → 2022-05-02 | Outpatient (CLI) | payer MEDICARE, SELFPAY ==
[2022-05-02 16:10] LABS: T4 Free Direct 1.06 ng/dL (0.76-1.46)
== END | disposition home or self-care (01) ==
LOC: LAB 14:28
PROVIDERS: PCP Student in an Organized Health Care Education/Training Program; Referring Provider Student in an Organized Health Care Education/Training Program; Visit Provider Student in an Organized Health Care Education/Training Program
DX: Z01.818 Encounter for other preprocedural examination (principal); R73.03 Prediabetes; E05.00 Thyrotoxicosis with diffuse goiter without thyrotoxic crisis or storm
CPT/HCPCS: 36415; 84439; 86850; 86900; 86901

== ENCOUNTER 2022-05-17 13:45 | Observation (INO) | payer MEDICARE, MEDICAID, SELFPAY ==
--- NOTE | 2022-04-27 12:15 | HP.PCM_ITS ---
History and Physical History and Physical [facility] Patient Name: Mireille Gurrola : 1965 From:? KLAUS AMADO PA-C? DATE OF SURGERY:? 05/17/2022 SCHEDULED PROCEDURE:? Left total hip arthroplasty HISTORY OF PRESENT ILLNESS: Preoperative history and physical exam was performed on April 27, 2022.? This is a 56-year-old female who is been having ongoing pain for the past several years with her left hip.? She has had a recent right total hip arthroplasty by Dr. Heriberto Vaca on December 14, 2021.? She has continued to complain of left hip pain.? Pain has been constant, aching, sharp.? Pain is increased with going up and down stairs, sitting, walking and bending.? She has difficulty with activities of daily living including bathing/showering, getting dressed, housework, shopping and leisure activities.? Patient has had previous left knee arthroplasty by Dr. Rufino Blount in 2019 and is adamant that the left leg feels 2 inches longer than the right.? She has had previous scanogram for this.? She is adamant that this leg length discrepancy did not exist prior to her knee replacement.? Patient has tried rest, ice, heat, elevation with no relief in symptoms.? She has tried physical therapy and hope exercises without relief.? She has an pain management with [facility] in which she takes oxycodone chronically.? She denies previous surgery on the left hip.? She has been using a walker for the past 2 months.? She has had minimal relief with medications or conservative measures.? She also complains of low back pain.? Patient has medical history pertinent for emphysema, hypertension, thyroid disease, Graves' disease and borderline diabetes.? She currently denies any chest pain or shortness of breath.? We are reaching out to pain management with regards to postoperative pain medication.? We are also obtaining surgical clearance from the primary care physician.? We will undergo preoperative lab work, EKG and chest x-ray. REVIEW OF SYSTEMS: Review Of Systems: Constitutional: Reports change in appetite and weight change, but denies fever. Cardiovasular: Reports irregular heartbeat, but denies chest pain and heart murmur. Respiratory: Denies cough, pneumonia, shortness of breath, tuberculosis and wheezing. Gastrointestinal: Denies constipation, diarrhea, dysphagia, heartburn, nausea, rectal itching, bloody stools and vomiting. Genitourinary: Denies incontinence. Musculoskeletal: Reports gait disturbance, leg swelling, pain, trouble walking and weakness. Skin: Reports tattoo, but denies Raynaud's and history of shingles. Neurological: Reports ambulatory dysfunction and numbness/tingling but denies dizziness and tremor. Psychiatric: Reports anxiety, insomnia and stress. Hematologic/Lymphatic: Denies anemia, bleeding/bruising tendency and past transfusion. Reviewed, no changes. PAST MEDICAL HISTORY: Advance Care Plan: No Advance Directives Effective Date: 08/01/2019 Past Medical History: Medical Problems: Emphysema, High Blood Pressure, Thyroid Disease, Graves Disease Diabetes - BORDERLINE Accidents: None Surgical Hx: Gallbladder - (2008) [facility] Knee Replacement Lt - (11/24/2019) [facility] RT Total Hip Replacemnet - (12/14/2021) [facility] Anesthesia Complications: None Assistive Devices: Glasses - READING, DRIVING, Walker Reviewed and updated. 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 Personal Habits:? Cigarette Use: Light tobacco smoker (10 or fewer cigaret max/day).Smokeless Tobacco: Never Used Smokeless Tobacco.E-Cigarette Use: E- Cigarette Use.Alcohol: Has consumed alcohol in the past.Drug Use: Denies Use.Enjoy Exercising: Exercises 1-3 X/Week. Reviewed and updated. VITALS: Ht: 65 Wt: 194lb Wt k.998 BMI: 32.3 BP: 136/88 Pulse: 84 T: 97.6 T: 36.4C Pain Level: 7 O2SatR: 97 ALLERGIES: No Known Drug Allergy? MEDICATIONS: Acetaminophen 500 mg Do not take more than 3000 mg Tylenol in a 24-hour period., D 5000 125 mcg (5000 Ut) daily, Meloxicam 7.5 mg 1 by mouth twice a day, Lisinopril 10 mg 1po qday, Albuterol Inhaler? 2 puffs as needed, Duloxetine HCL 60 mg 2 By mouth every day, Tylenol 8 Hour Arthritis Pain 650 mg every 4 hour as needed pain, Pantoprazole Sodium 40 mg 1 by mouth every day, Trazodone HCL 100 mg 1po qhs, Metformin HCL 500 mg 1 by mouth TWICE DAILY, Oxycodone HCL 5 mg take 1 tablet by mouth twice A day as needed for pain PRE-OP EXAM:? General appearance:NORMAL? ? ? Other: Eyes: Conjunctivae and lids: NORMAL? Pupils: ERR Ears, Nose, Mouth, and Throat: NORMAL? Other: Inspection of lips, teeth and gums: NORMAL? ?Other: Neck: Examination of neck: no masses noted. Respiratory: Assessment of respiratory effort: NORMAL? ?Other: ?Auscultation of lungs: clear to auscultation no wheezes, rhonchi or rales. Cardiovascular:? Auscultation of heart: regular rate and rhythm, no murmurs, gallops or rubs. PHYSICAL EXAMINATION: Patient walks with an antalgic gait.? Currently using a walker.? She has increased pain with any range of motion of the left hip.? She has limited flexion secondary to pain.? Sensation intact to light touch.? Neurovascularly intact.? Right hip incision is well-healed. IMAGING STUDIES: Previous x-rays of the left hip reveal severe joint space narrowing, flattening of the femoral head, subchondral sclerosis, osteophyte formation consistent with severe stage IV left hip osteoarthritis. IMPRESSION: 1.? Severe left hip osteoarthritis 2.? Presence of right total hip arthroplasty December 14, 2021 3.? Presence of left total knee arthroplasty 2019 4.? Emphysema 5.? Borderline diabetes 6.? Thyroid disease 7.? Graves' disease 8.? Hypertension 9.? Chronic pain management PLAN: History and Physical [facility] Patient Name: Lefty Arau[birth year]B: 08/29/1963 From:? KLAUS AMADO PA-C? DATE OF SURGERY:? 05/17/2022 SCHEDULED PROCEDURE:? Left total knee arthroplasty HISTORY OF PRESENT ILLNESS: Preoperative history and physical exam was performed on April 26, 2022.? This is a 58-year-old male who is had ongoing pain for over 3 years with the left knee.? Patient states with activities his pain can still reach as high as a 10/10.? Pain is increased with going up and down stairs, sitting, lifting anything and walking.? He does have start up pain.? Pain is been intermittent.? He has difficulty with any lifting or running due to the pain.? Patient has had previous corticosteroid injections with 2 weeks of relief.? He has also had the visco supplementation injection with only minimal relief.? Patient has been on oral medications including meloxicam and Tylenol.? 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 He denies previous surgery on the left knee.? After failing conservative measures and discussing treatment options with Dr. Heriberto Vaca, the patient does wish to proceed with a left total knee arthroplasty.? Patient has had recent crown placed by the dentist and we are getting clearance from Dr. Irwin.? We are obtaining surgical clearance from the primary care physician Dr. Kumar.? He currently denies any chest pain, shortness of breath, fevers chills or recent infections.? Patient has medical history pertinent for hypertension, thyroid disease and type 2 diabetes mellitus.? REVIEW OF SYSTEMS: ROS: Const: Denies anorexia, change in appetite, fever, hard of hearing, vision problems and weight change. CV: Denies chest pain, heart murmur, irregular heartbeat and peripheral vascular disease. Resp: Denies asthma, cough, pneumonia, sleep apnea, SOB, tuberculosis and wheezing. GI: Denies constipation, diarrhea, difficulty swallowing, heartburn, nausea, bloody stools and vomiting. : Urinary: denies incontinence. Musculo: Denies leg swelling, limp, trouble walking and weakness. Skin: Denies Raynaud's, history of shingles and tattoo. Neuro: Denies ambulatory dysfunction, dizziness, numbness/tingling and tremor. Psych: Denies anxiety, depression, insomnia, mental illness and stress. Tima/Lymph: Denies anemia, bleeding/bruising tendency and past transfusion. Reviewed, no changes. PAST MEDICAL HISTORY: PMH: Medical Problems: Diabetes, Thyroid Disease, Radiculopathy, High Blood Pressure, Hard Of Hearing Accidents: Fracture - LT ARM, NOSE, JAW LT Forearm Injury - (08/13/2016) Surgical Hx: Tonsillectomy Knee Arthroscopy RT - (2019) [email or web address] Anesthesia Complications: None Assistive Devices: Glasses, Hearing Aid Reviewed and updated. 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 Personal Habits:? Cigarette Use: Never Smoked Cigarettes.Alcohol: Occasionally.Drug Use: Denies Use.Enjoy Exercising: Exercises 1-3 x/month. Reviewed, no changes. VITALS: Ht: 69 Wt: 212lb Wt k.163 BMI: 31.3 BP: 126/76 Pulse: 68 Resp: 18 T: 98.1 T: 36.7C Pain Level: 0 O2SatR: 98 ALLERGIES: No Known Drug Allergy? MEDICATIONS: Zofran 4 mg one by mouth every 8 as needed nausea, Oxycodone HCL 5 mg 1-2 tab by mouth every 4-6 hours, Meloxicam 15 mg 1 by mouth every day, Pioglitazone HCL 45 mg qd, Atenolol 100 mg 1 po qd, Valsartan/Hydrochlorothiazide 320-25 mg qd, Metformin HCL ER 750 mg 1 po qd, Levothyroxine Sodium 50 mcg 1 po qd, Glimepiride 1 mg 1po qday, Tylenol Extra Strength 500 mg 2 by mouth every 8 hours, Potassium Chloride ER 20 Meq, Jardiance 25 mg, Pantoprazole Sodium 40 mg 1 by mouth every day PRE-OP EXAM:? General appearance:NORMAL? ? ? Other: Eyes: Conjunctivae and lids: NORMAL? Pupils: ERR Ears, Nose, Mouth, and Throat: NORMAL? Other: Inspection of lips, teeth and gums: NORMAL? ?Other: Neck: Examination of neck: no masses noted. Respiratory: Assessment of respiratory effort: NORMAL? ?Other: ?Auscultation of lungs: clear to auscultation no wheezes, rhonchi or rales. Cardiovascular:? Auscultation of heart: regular rate and rhythm, no murmurs, gallops or rubs. PHYSICAL EXAMINATION: Patient walks with an antalgic gait.? Left knee has tenderness to palpation along the medial joint line.? He has correctable varus alignment.? There is mild effusion.? Range of motion: Lacks 3 full extension to 125 flexion.? Stable to anterior/posterior drawer exam with firm endpoint.? Stable to varus/valgus stress test.? Sensation intact to light touch. IMAGING STUDIES: Previous x-rays of the left knee reveal varus alignment with medial joint space narrowing, subchondral sclerosis, osteophyte formation consistent with severe stage IV erosive osteoarthritis. IMPRESSION: 1.? Severe left knee osteoarthritis 2.? Type 2 diabetes mellitus 3.? Hypertension 4.? Thyroid disease 5.? Radiculopathy PLAN: Dr. Heriberto Vaca did discuss and review with the patient all treatment options including surgical versus nonsurgical options.? Patient does wish to proceed with the above-stated procedure.? Potential risks, benefits, and complications of the procedure were discussed in detail including but not limited to , infection, nerve and blood vessel damage, persistent pain, numbness, tingling, paresthesias, blood clot, pulmonary embolism, and requirement for possible further surgery.? The patient expressed full understanding and has no further questions for the doctor.? Patient does agree to proceed with the above-stated procedure and has signed the surgery consent form. We discussed the current risks associated with COVID 19.? This does include the risk of exposure while in the hospital.? Patient was reassured local hospitals h ave low infection rates and are taking all necessary precautions to avoid exposure to patients.? In addition, we discussed strategies that can be used to help limit exposure including those that limit the patient's time in the hospital.? Also using strategies to limit the patient's need for continued inpatient services after being discharged from the hospital.? Patient was notified that we will need to comply with any screening or testing the hospital wishes to perform or that surgery may be delayed for any positive results. This dictation was created using voice recognition software. Phonetic and/or grammatical errors may exist. ___? I have re-examined the patient.? There are no clinical changes since date of exam. ___? See progress notes for changes. ___? Dictated on admission Date: ? ? ?Time: Signature: ___? I have re-examined the patient.? There are no clinical changes since date of exam. ___? See progress notes for changes. ___? Dictated on admission Date: ? ? ?Time: Signature:
--- NOTE | 2022-05-02 15:05 | RAD_ITS ---
STUDY: X-RAY CHEST REASON FOR EXAM: Female, 56 years old. PREOP TECHNIQUE: PA and lateral views of the chest were obtained. COMPARISON: None. FINDINGS: The lungs are clear and expanded. There is no demonstrated pleural abnormality. Normal size heart. Normal mediastinum and veronica. Normal visualized pulmonary arteries. Normal visualized aortic arch and descending thoracic aorta. Normal visualized thoracic spine. Normal visualized ribs, clavicles, and shoulders. There is no demonstrated abnormality of the visualized soft tissue structures of the upper abdomen. RAD/Chest PA and Lateral IMPRESSION: Normal x-ray examination of the chest. Electronically Signed: Dre Perez MD at 15:37 EST ,
[2022-05-02 15:37] LABS: Eosinophil# 0.06 X10^3/uL; Eosinophils% 0.8 % (0-5); Mean Platelet Vol. 9.8 fl (6.2-12.0); NRBC Flagged by Analyzer 0 % (0-5); Neutrophil % 62.2 % (47-70)
[2022-05-02 15:39] LABS: Absolute Lymphocyte Count 2.06 X10^3/uL (0.83-4.51); Absolute Neutrophil Count 4.5 X10^3/uL (2.0-7.7); Basophil# 0.07 X10^3/uL; Hematocrit 41.7 % (37-47); Hemoglobin 14.2 g/dL (12.0-15.0); Lymphocyte # 2.06 X10^3/ul (0.83-4.51); Lymphocyte % 28.6 % (19-41); Mean Corp Hgb Conc 34.1 g/dL (32-36); Mean Corpuscular Hgb 31.3 pg (27.0-32.0); Mean Corpuscular Volume 91.9 fL (81-99); Monocyte# 0.51 X10^3/uL; Monocyte% 7.1 % (0-10); Neutrophil # 4.48 X10^3/uL (2.7-7.7); Platelet Count 395 K/mm3 (150-450); RBC Distribution Width CV 13.9 % (11.6-14.6); Red Blood Count 4.54 M/mm3 (4.2-5.4); White Blood Count 7.2 K/mm3 (4.4-11.0)
[2022-05-02 16:07] LABS: Albumin, Serum 3.9 g/dL (3.2-5.0); Anion Gap 6 (5-15); BUN 19 mg/dL (7-18); BUN/Creat Ratio 28.9 RATIO (10-20); CRP < 2.90 mg/L (0.0-3.0); Calcium,Total 9.8 mg/dL (8.5-10.1); Chloride 105 mmol/L (98-107); Creatinine, Serum 0.66 mg/dL (0.55-1.02); EST Glomerular Filtration Rate 99 mL/min (>60); Est Glom Filt Rate - Afr Amer 119 mL/min (>60); Glucose 111 mg/dL (74-106); Potassium 4.2 mmol/L (3.5-5.1); Sodium Level 141 mmol/L (136-145)
[2022-05-02 16:15] LABS: Magnesium 1.9 mg/dL (1.6-2.6); Thyroid Stim Hormone (TSH) 0.91 uIU/mL (0.358-3.74)
[2022-05-02 16:31] LABS: Erythrocyte Sedimentation Rate 10 mm/hr (0-30)
--- NOTE | 2022-05-10 15:49 | CASEMGMT ---
RN CM Assessment: TC to pt for initial transition planning/care coordination assessment. Care providers, pharmacy, and demographics verified/updated. Admitting Dx: Left total hip anterior approach PCP:[facility] Specialists:johnny Vaca; pain mgmt in [place]; johnny Lucero Preferred Pharmacy: [facility] Insurance: [facility] Dual, [facility] Community Plan Prescription Benefit: yes LNOK: Karma Gurrola, dtr; Tomás Gurrola, son Living Arrangements: Pt lives with son in a single story house with 4 steps to enter with a rail. Pt states her shower is in the basement which is 10 steps to get to. Pt reports being I in ADL's and denies concerns at home. Transportation: Pt drives self and denies concerns with transportation. Pt dtr will transport her to medical appts post surgery or pt will use her insurance. DME/HHC/SNF: Pt has a FWW that she uses, cane, sock aid, shoe horn, high rise toilet with rails. Pt denies hx of HHC or SNF stays. Pt states no concerns with going home at time of dc. She has therapy set up for 05/22 at [facility]. Pt states no further concerns/needs. CM to follow. Advised pt to ask CM if any further question/concerns/needs arise, voices understanding. Pt Goal: Home with outpt therapy set up Plan: Home with outpt therapy set up
[2022-05-17] VITALS (27 sets, daily range): BP systolic 97–126; BP diastolic 54–78; PULSE 66–93; RESP 16–20; TEMP 36.2–37.1; O2SAT 10–100; BMI 31.1
--- NOTE | 2022-05-17 | HIP_PTH ---
PATIENT: IRMA CEVALLOS LOC: [facility]3 U#:[id number] AGE/SX: 57/F ROOM: [place]321 RE05/17/[address]: Dr. Heriberto Vaca MD : 1965 BED: 1 DIS: 05/18/2022 SPEC #: [id number] RECD: 05/17/22 16:16 STATUS: JUMA TEMPLE #: [id number] JF: 05/17/22 00:[address]: Heriberto Vaca DEPT: SURGICAL PATHOLOGY RECD BY: Raheem Gaming ENTERED: 05/18/22 08:24 SP TYPE: TOTAL HIP OTHR DR: DO Dr. Rufino Garcia DO Tissues: Hip, NOS Procedures: Decalcification bone/plaque Surgery Specimen Level IV HEADER OPERATION: ERAS, direct anterior total hip arthroplasty PRE-OP DIAGNOSIS: Left hip primary osteoarthritis TISSUE SUBMITTED: Left femoral head MICROSCOPIC DIAGNOSIS Bone and tissue of left hip, total hip resection: Severe degenerative joint disease. AM:yaneli 05/22/2022 MICROSCOPIC DESCRIPTION Slides are reviewed. GROSS DESCRIPTION Received is one container labeled with the patient's name and designated left femoral head. The specimen consists of a dickson femoral head that measures 4.5 x 5 x 4.5 cm and the portion of femoral neck measures up to 1 cm in length. Also present in the container is a portion of bone consistent with a portion of femoral neck measuring 5.5 x 2.5 x 1 cm. The articular surface displays prominent osteophyte formation, eburnation and bone erosion. Also present in the specimen container are multiple pieces of hemorrhagic tissue consistent with bone reamings measuring in aggregate 4.5 x 5 x 1 cm. Shipping Helper sections are submitted in two cassettes after decalcification as follows: 1 - bone reamings, 2 - femoral head. / SJ:yaneli 05/18/2022 TC:5 CPT: 89054, 39400
--- NOTE | 2022-05-17 07:20 | PCM.OPRPT ---
Report of Operation Date of Procedure: 05/17/22 Pre-Operative Diagnosis: Left hip primary osteoarthritis Post-Operative Diagnosis: Left hip primary osteoarthritis Surgery/Procedure Performed:: Left minimally invasive direct anterior hip replacement Description of Surgical Findings:: Stable hip with equal leg lengths Surgeon: Heriberto Vaca abrading machine tender: Kaushik Max Type of Anesthesia: Spinal Anesthesiologist: Floyd Lopez Special Medications: 2 g Ancef, 1 g TXA at incision, 1 g TXA closure, 10 mg Decadron, joint cocktail (5 mg Duramorph, 30 mL of 0.5% Ropivicaine, 1000 units of epinephrine, 30 mg of Toradol) Specimen's removed: Bony cuts Estimated Blood Loss (mL): 200 Fluids Replaced: 800 mL crystalloid Description of Procedure: Components used: 1. Insignia [place] femoral stem size 3 high offset 2. Cris trident 2 acetabular shell size 52 mm 3. [place] X3 polyethylene E 4. [place] Biolox delta 36mm, -5mm femoral head Brief history operative indications: 57 yo f who failed conservative measures for their hip osteoarthritis. X-rays were consistent with osteoarthritis including joint space narrowing, osteophyte formation and subchondral cysts. Total hip replacement was discussed with the patient with risks and benefits including but not limited to blood loss, DVTs, PEs, neurovascular damage, dislocation, general risks of anesthesia including loss of life. Patient demonstrated an understanding medical clearance is obtained the patient was consented for surgery. Procedure: On the date of procedure the patient's L hip was marked in the preoperative area. Patient was then taken back to the operating room where anesthesia assumed control of the C-spine and airway and administered anesthetic. Patient was transferred to the operating table and placed in the supine position. The hips were placed at the break of the bed and a sacral bump was placed. L The lower extremity was then prepped out in a sterile fashion using chlorhexidine while the surgeon scrubbed. The PA was vital in the positioning of the patient. Upon reentering the room the left lower extremity was draped in the standard orthopedic fashion and the incision was marked. A timeout was called and everyone agreed upon the side, the site, the procedure be performed, antibody given, and patient's identity. At this time incision was made through skin, subcutaneous tissue, and fat down to fascia. The fascia was then incised and the TFL was retracted laterally. A retractor was placed on the lateral border of the femoral neck. Attention was directed to the inferior portion of the approach and all crossing vessels were identified and appropriately coagulated. A retractor was then placed on the medial portion of the femoral neck. The anterior capsule was then cleared of all soft tissue and then H shaped capsulotomy was made. The retractors were then placed inside the capsule. The femoral neck was identified and a cleanup cut was made. At this time a power corkscrew was used to remove the femoral head. Attention was then turned toward the acetabulum where the soft tissues were appropriately retracted and the acetabulum was sequentially reamed to 52 mm. A 52 mm cup was then selected and impacted into place. Acetabular liner was impacted into place and locking mechanism was verified. The position of the acetabular cup was then verified under live fluoroscopy. Attention was then turned to the femur. Soft tissue releases on the medial and lateral femoral neck were appropriately done, the leg was externally rotated and lateralized. A Finley retractor was placed medially and proximally to the greater trochanter this allowed appropriate visualization and exposure of the femoral canal. Rongeour was then used to remove excess lateral bone. A canal finder and entry broach were used to open the proximal canal. Once we verified we were down the femoral canal we subsequently broached up to a size 3 femur. The appropriate neck was placed in the previously selected head was trialed with a -5 mm neck. Traction was pulled and the hip was reduced with internal rotation. Once it was appropriately reduced and stability was checked. There was minimal shuck, equal leg lengths and appropriate stability with hyperextension and external rotation as well as with 90? flexion and internal rotation. Fluoroscopy was then also used to verify the position of the components and leg lengths using the contralateral side for comparison. The trial components were then dislocated the proximal femur was again exposed and the components were removed from the wound. The final components were verified and opened. The wound was copiously irrigated out with normal saline. The acetabulum was checked for any residual debris. The final components were placed and impacted. Traction and internal rotation were again used to reduce the hip. After adequate reduction the hip remained stable with appropriate leg lengths. The final components were once again checked with live fluoroscopy and were found to be satisfactory. The wound was then copiously irrigated with normal saline once more, and hemostasis was obtained. Closure was then done using #1 Vicryl runner to close the fascia. A 2-0 vicryl interuppted sutures were used to close the subcutaneous skin. A 3-0 Monocryl and Steri-Strips were used for final skin closure. A Silverlon dressing was placed. Patient was awakened by anesthesia and transferred to the [facility]. Patient was then transferred to the PACU for recovery. During the course of the procedure the physician bobbin winder tender (PE) played a vital role. Their intimate knowledge of my steps in the procedure aided in safe and expedient completion of the procedure. The PE played a vital rolls in positioning particularly in obtaining the appropriate positioning of the sacral bump. The PE was also vital in the retraction of soft tissues during the exposure and especially the femoral work as this is a vital part of the procedure to prevent complications and fractures. The PE was also vital and protecting soft tissues during times of bony cuts and reaming. He also played a vital role in closure with my direct supervision. The PE was also important during reduction and dislocation of the joint and trials intraoperatively. Postoperative plan: Patient will get 24 hours postop antibiotics. Patient will get in-house physical therapy and will be weight-bear as tolerated. Patient will follow up in office in 2 weeks for a wound check and x-rays. Aspirin 81 mg twice daily. Complications No intraoperative complications Admit VTE Documentation VTE Present on Admission: No VTE Mechan Device Prophylaxis: SCD's and Thigh High CARRI Hose VTE Pharm Prophylaxis ordered?: Yes
[2022-05-17] MEDS: Lactated Ringers 1,000 ML 15 ML IV (10:50)
[2022-05-17] MEDS: Magnesium 2 GM for ERAS IV (11:14)
[2022-05-17] MEDS: Celecoxib 200 MG Capsule 400 MG PO (11:15)
[2022-05-17] MEDS: Acetaminophen 500 MG Tablet 1000 MG PO ×2 (11:15→19:48)
[2022-05-17] MEDS: Gabapentin 600 MG Tablet PO (11:15)
[2022-05-17 11:26] LABS: Bedside Glucose 97 mg/dL (74-106)
[2022-05-17] MEDS: Cefazolin 2 GM in 0.9% Normal Saline 100 ML IV (11:42)
[2022-05-17] MEDS: TXA 1000mg in NS100 100ml (IVPB at Incision) 660 MG IV (11:54)
[2022-05-17] MEDS: dexAMETHasone 10 MG/ML Vial IV (12:02)
--- NOTE | 2022-05-17 12:05 | RAD_ITS ---
STUDY: X-RAY - PELVIS AND LEFT HIP REASON FOR EXAM: Female, 57 years old. PAIN TECHNIQUE: 1 views of the pelvis and hip. COMPARISON: None. FINDINGS: Intraoperative imaging provided for left total hip preplacement. RAD/Hip 1 view with Pelvis IMPRESSION: Intraoperative imaging provided for left total hip replacement. Electronically Signed: Logan Upton MD at 15:43 EST ,
[2022-05-17] MEDS: TXA 1000mg in NS100 100ml (IVPB at Closure) 660 MG IV (13:01)
[2022-05-17] MEDS: Lactated Ringers 1,000 ML 125 ML IV (13:05)
[2022-05-17] MEDS: Lactated Ringers 1,000 ML 999 ML IV (13:30)
--- NOTE | 2022-05-17 14:05 | RAD_ITS ---
STUDY: X-RAY - PELVIS AND LEFT HIP REASON FOR EXAM: Female, 57 years old. Post Op -- AP both hips on single jamie/lateral of op hip PACU TECHNIQUE: 2 views of the pelvis and hip. COMPARISON: None. FINDINGS: The patient is status post left total hip replacement. There is good alignment. RAD/Hip Min 2 Views (Portable) IMPRESSION: Status post left total hip replacement. There is good alignment. Electronically Signed: Logan Upton MD at 14:42 EST ,
[2022-05-17] MEDS: Insulin Lispro 100 UNIT/ML INSULN.PEN SC ×2 (15:50→22:13)
[2022-05-17 15:56] LABS: Bedside Glucose 192 mg/dL (74-106)
[2022-05-17] MEDS: metFORMIN HCl 500 MG Tablet PO (18:04)
[2022-05-17] MEDS: Ensure Surgery 237 ML LIQUID PO (18:04)
[2022-05-17] MEDS: Aspirin 81 MG TAB.CHEW PO (18:05)
--- NOTE | 2022-05-17 18:12 | HP.PCM.HOS_ITS ---
HPI - General HPI Narrative IRMA CEVALLOS, is a 57 F who presents [facility] Medical History (Updated 05/01/22 @ 14:27 by Aziza Shay) Alcohol use Arthritis Back pain Cardiology follow-up encounter Depression Diabetes Essential hypertension Gastric reflux Graves' disease High cholesterol History of knee problem History of pain when walking History of stress test Insomnia Marijuana use Pain Post-menopausal Smoker Tachycardia Thyromegaly Walker as ambulation aid Wears glasses Home Medications albuterol sulfate 90 mcg/actuation aerosol inhaler 2 puff inhalation Q4H PRN Asthma 09/03/19 [History Last Taken Unknown] lisinopril 10 mg tablet 10 mg PO DAILY 10/11/20 [History Last Taken 05/17/22 07:00] cholecalciferol (vitamin D3) 125 mcg (5,000 unit) tablet 5,000 ea PO DAILY 10/11/21 [History Last Taken Unknown] duloxetine 60 mg capsule,delayed release 60 mg PO BID 10/11/21 [History Last Taken 05/17/22 07:00] meloxicam 7.5 mg tablet 7.5 mg PO BID 10/11/21 [History Last Taken Unknown] pantoprazole 40 mg tablet,delayed release 40 mg PO DAILY 10/11/21 [History Last Taken 05/17/22 07:00] oxycodone 5 mg tablet 5 - 10 mg PO Q4H PRN PRN Pain Score 4-10 5 days #60 tabs 12/15/21 [Rx Last Taken Unknown] acetaminophen 500 mg tablet 1,000 mg PO PRN PRN Pain 05/01/22 [History Last Taken Unknown] metformin 500 mg tablet 500 mg PO BID 05/01/22 [History Last Taken Unknown] Allergy/AdvReac Type Severity Reaction Status Date / Time latex Allergy Intermediate Itching Verified 05/01/22 13:57 Family History Mother Diabetes Father Diabetes Hypertension Surgical History (Updated 05/01/22 @ 14:08 by Aziza Shay) Hx of cholecystectomy Hx of total hip arthroplasty Hx of total knee arthroplasty Social History Smoking Status: Current every day smoker tobacco type: cigarettes and smokeless tobacco alcohol intake: current alcohol intake frequency: a few times a week Alcohol type: beer Vital Signs Vital Signs Vital Signs: 05/17/22 10:56 05/17/22 10:56 05/17/22 13:39 Temperature 98.7 F 97.2 F L Temperature Source Temporal Temporal Pulse Rate 76 70 Pulse Strength Respiratory Rate 16 16 Respiratory Pattern Normal Normal Blood Pressure 126/73 H 98/54 L Blood Pressure Mean 90 68 Blood Pressure Source Monitor Monitor Blood Pressure Position Semi-Fowlers Supine Blood Pressure Location Left Arm Left Arm Baseline BP 126/73 Pulse Ox 97 100 Oxygen Delivery Method Room Air Room Air Oxygen Flow Rate (L/min) 05/17/22 13:40 05/17/22 13:45 05/17/22 13:50 Temperature Temperature Source Pulse Rate 72 69 69 Pulse Strength Respiratory Rate 18 18 16 Respiratory Pattern Blood Pressure 98/54 L 105/57 L 105/57 L Blood Pressure Mean 68 73 73 Blood Pressure Source Monitor Monitor Monitor Blood Pressure Position Semi-Fowlers Semi-Fowlers Semi-Fowlers Blood Pressure Location Left Arm Left Arm Left Arm Baseline BP 126/73 126/73 126/73 Pulse Ox 100 100 100 Oxygen Delivery Method Nasal Cannula Nasal Cannula Nasal Cannula Oxygen Flow Rate (L/min) 4 4 4 05/17/22 13:55 05/17/22 14:00 05/17/22 13:45 Temperature Temperature Source Pulse Rate 69 68 Pulse Strength Normal (2+) Respiratory Rate 16 16 Respiratory Pattern Blood Pressure 105/59 L 103/63 Blood Pressure Mean 74 76 Blood Pressure Source Monitor Monitor Blood Pressure Position Semi-Fowlers Semi-Fowlers Blood Pressure Location Left Arm Left Arm Baseline BP 126/73 126/73 Pulse Ox 100 10 Oxygen Delivery Method Nasal Cannula Nasal Cannula Oxygen Flow Rate (L/min) 4 4 05/17/22 14:15 05/17/22 14:30 05/17/22 14:45 Temperature Temperature Source Pulse Rate 70 68 66 Pulse Strength Respiratory Rate 16 16 16 Respiratory Pattern Blood Pressure 104/66 108/60 113/67 Blood Pressure Mean 78 76 82 Blood Pressure Source Monitor Monitor Monitor Blood Pressure Position Semi-Fowlers Semi-Fowlers Semi-Fowlers Blood Pressure Location Left Arm Left Arm Left Arm Baseline BP 126/73 126/73 126/73 Pulse Ox 100 100 100 Oxygen Delivery Method Nasal Cannula Nasal Cannula Nasal Cannula Oxygen Flow Rate (L/min) 4 4 4 05/17/22 15:00 05/17/22 15:15 05/17/22 15:21 Temperature Temperature Source Pulse Rate 71 74 Pulse Strength Respiratory Rate 18 16 Respiratory Pattern Blood Pressure 103/62 97/61 Blood Pressure Mean 75 73 Blood Pressure Source Monitor Monitor Blood Pressure Position Semi-Fowlers Semi-Fowlers Blood Pressure Location Left Arm Baseline BP 126/73 126/73 126/73 Pulse Ox 100 100 Oxygen Delivery Method Nasal Cannula Nasal Cannula Oxygen Flow Rate (L/min) 4 4 05/17/22 15:30 05/17/22 15:45 05/17/22 16:00 Temperature Temperature Source Pulse Rate 73 83 83 Pulse Strength Respiratory Rate 16 16 16 Respiratory Pattern Blood Pressure 109/69 113/71 116/78 Blood Pressure Mean 82 85 90 Blood Pressure Source Monitor Monitor Monitor Blood Pressure Position Semi-Fowlers Semi-Fowlers Semi-Fowlers Blood Pressure Location Left Arm Left Arm Left Arm Baseline BP 126/73 126/73 126/73 Pulse Ox 100 99 95 Oxygen Delivery Method Nasal Cannula Nasal Cannula Room Air Oxygen Flow Rate (L/min) 4 4 05/17/22 16:15 05/17/22 16:30 05/17/22 16:32 Temperature Temperature Source Pulse Rate 80 80 Pulse Strength Respiratory Rate 18 16 Respiratory Pattern Blood Pressure 114/66 114/71 Blood Pressure Mean 82 85 Blood Pressure Source Monitor Monitor Blood Pressure Position Semi-Fowlers Semi-Fowlers Blood Pressure Location Left Arm Left Arm Baseline BP 126/73 126/73 126/73 Pulse Ox 95 96 Oxygen Delivery Method Room Air Room Air Oxygen Flow Rate (L/min) 05/17/22 16:45 05/17/22 17:00 05/17/22 17:15 Temperature 97.6 F L Temperature Source Temporal Pulse Rate 88 87 93 Pulse Strength Respiratory Rate 16 18 18 Respiratory Pattern Blood Pressure 116/64 121/67 H 126/73 H Blood Pressure Mean 81 85 90 Blood Pressure Source Monitor Monitor Monitor Blood Pressure Position Semi-Fowlers Semi-Fowlers Semi-Fowlers Blood Pressure Location Left Arm Left Arm Left Arm Baseline BP 126/73 126/73 126/73 Pulse Ox 96 96 95 Oxygen Delivery Method Room Air Room Air Room Air Oxygen Flow Rate (L/min) 05/17/22 17:37 Temperature 98.2 F Temperature Source Oral Pulse Rate 92 Pulse Strength Respiratory Rate 20 H Respiratory Pattern Blood Pressure 119/65 Blood Pressure Mean 83 Blood Pressure Source Monitor Blood Pressure Position Semi-Fowlers Blood Pressure Location Right Arm Baseline BP Pulse Ox 95 Oxygen Delivery Method Room Air Oxygen Flow Rate (L/min) Weight Weight: 85 kg Body Mass Index (BMI) 31.1 Results Lab / Micro Data Result Diagrams: 05/02/22 14:39 05/02/22 14:39 Labs: Laboratory Results - last 24 hr 05/17/22 11:01: POC Glucose 97 05/17/22 15:27: POC Glucose 192 H Radiology Impression Hip/Pelvis X-Ray 05/17/22 12:05 IMPRESSION: Intraoperative imaging provided for left total hip replacement. Electronically Signed: Logan Upton MD at 15:43 EST , Hip X-Ray 05/17/22 14:05 IMPRESSION: Status post left total hip replacement. There is good alignment. Electronically Signed: Logan Upton MD at 14:42 EST ,
--- NOTE | 2022-05-17 18:13 | PCM.PN.HOSP ---
Subjective Subjective Consult for postop medical management: 57-year-old with past medical history of thyrotoxicosis secondary to Graves' disease who comes in for left total hip arthroplasty. Patient had her right total hip arthroplasty done in December 2021. She continues to complain of left hip pain that is worse with going up and down the staircase or any kind of movements. Patient was seen in the immediate postop period, denied any dizziness or chest pain or palpitation. Her pain was controlled. Objective Data Objective Data Vital Signs: Vital Signs Temp Pulse Resp BP Pulse Ox O2 Del Method O2 Flow Rate 98.2 F 92 20 H 119/65 95 Room Air 4 05/17/22 17:37 05/17/22 17:37 05/17/22 17:37 05/17/22 17:37 05/17/22 17:37 05/17/22 17:37 05/17/22 15:45 Oxygen Flow Rate (L/min) 4 Oxygen Delivery Method Room Air Weight: 85 kg Body Mass Index (BMI) 31.1 Intake & Output: Intake and Output for Last 24 Hours 05/15/22 05/16/22 05/17/22 23:59 23:59 23:59 Intake Total 3474 / 3474 Output Total 200 / 200 Balance 3274 / 3274 Lab / Micro Data Result Diagrams: 05/02/22 14:39 05/02/22 14:39 Labs: Laboratory Results - last 24 hr 05/17/22 11:01: POC Glucose 97 05/17/22 15:27: POC Glucose 192 H Micro: Microbiology 05/02/22 14:39 Swab (Method) Nasal Screen MRSA/MSSA - Final Radiography Diagnostic Testing: Radiology Impression Hip/Pelvis X-Ray 05/17/22 12:05 IMPRESSION: Intraoperative imaging provided for left total hip replacement. Electronically Signed: Logan Upton MD at 15:43 EST , Hip X-Ray 05/17/22 14:05 IMPRESSION: Status post left total hip replacement. There is good alignment. Electronically Signed: Logan Upton MD at 14:42 EST , Physical Exam Narrative Physical exam: General: Alert, Oriented x3, Cooperative, No apparent distress HEENT: Atraumatic Oral: Moist Mucosa Neck: Supple Lungs: Clear to auscultation Cardiovascular: HS I+II, regular, no murmurs Abdomen: Bowel Sounds Present, Soft, Non Tender Extremities: No edema, cooling mattress to the left hip Skin: No rashes, No breakdown Neurological: Grossly intact Psych/Mental Status: Appropriate Assessment & Plan Assessment/Plan (1) Status post total replacement of right hip: PLAN: Plan 1. Postop day #0 status post minimally invasive left direct anterior hip replacement Patient's pain is fairly controlled, continue on current pain regimen -scheduled Tylenol, as needed oxycodone PT and OT to evaluate and treat Continue other management per orthopedics recommendation 2. Hypertension, controlled, continue lisinopril 3. Graves' disease, patient's recent TSH and free T4-normal She is not on any medication at the moment Will continue to monitor 4. Borderline type II DM, continue metformin, continue with insulin sliding scale blood glucose checks 5. DVT prophylaxis per orthopedics -aspirin twice daily Charges/Coding Visit Charges Office Visits / Consults: 71599 OP Consult L5
--- NOTE | 2022-05-17 18:39 | NURSING ---
Pt wanted to get OOB and walk. This RN assisted pt to dangle at edge of bed. Did well. Assisted to walk with walker to the doorway and then to chair. Sitting in chair at this time.
[2022-05-17 18:45] LABS: Bedside Glucose 253 mg/dL (74-106)
[2022-05-17] MEDS: oxyCODONE 5 MG Tablet PO ×2 (19:47→21:59)
[2022-05-17] MEDS: Senna/Docusate Sodium 1 Tablet 2 TABLET PO (19:47)
[2022-05-17] MEDS: DULoxetine Hcl 60 MG Capsule PO (19:49)
[2022-05-17] MEDS: Cefazolin 1 GM/50 ML BAG IV (21:59)
[2022-05-17] MEDS: Ketorolac 15 MG/ML Vial IV (22:00)
[2022-05-17 22:51] LABS: Bedside Glucose 263 mg/dL (74-106)
[2022-05-18 00:51] VITALS: BP 118/68; PULSE 87; RESP 18; TEMP 36.7; O2SAT 96
[2022-05-18 01:37] VITALS: BP 124/69; PULSE 72; RESP 18; TEMP 36.6; O2SAT 97
[2022-05-18] MEDS: Acetaminophen 500 MG Tablet 1000 MG PO (03:57)
[2022-05-18] MEDS: Cefazolin 1 GM/50 ML BAG IV (03:57)
[2022-05-18] MEDS: Ketorolac 15 MG/ML Vial IV (04:00)
[2022-05-18 04:51] VITALS: BP 144/69; PULSE 71; RESP 18; TEMP 36.6; O2SAT 99
[2022-05-18 04:55] VITALS: BP 144/69; PULSE 71; RESP 18; TEMP 36.6; O2SAT 99
[2022-05-18 06:35] LABS: Bedside Glucose 116 mg/dL (74-106)
[2022-05-18] MEDS: oxyCODONE 5 MG Tablet PO (06:46)
[2022-05-18 07:19] LABS: Hematocrit 36.4 % (37-47); Hemoglobin 11.8 g/dL (12.0-15.0); Mean Corp Hgb Conc 32.4 g/dL (32-36); Mean Corpuscular Hgb 30.6 pg (27.0-32.0); Mean Corpuscular Volume 94.3 fL (81-99); Platelet Count 361 K/mm3 (150-450); RBC Distribution Width CV 13.3 % (11.6-14.6); RBC Distribution Width SD 45.8 fl (35.1-43.9); Red Blood Count 3.86 M/mm3 (4.2-5.4); White Blood Count 18.3 K/mm3 (4.4-11.0)
[2022-05-18 07:46] LABS: Anion Gap 6 (5-15); BUN 11 mg/dL (7-18); BUN/Creat Ratio 16.2 RATIO (10-20); Calcium,Total 9.3 mg/dL (8.5-10.1); Chloride 105 mmol/L (98-107); Creatinine, Serum 0.68 mg/dL (0.55-1.02); EST Glomerular Filtration Rate 95 mL/min (>60); Est Glom Filt Rate - Afr Amer 115 mL/min (>60); Estimated Creatinine Clearance 82.14 ml/min; Glucose 113 mg/dL (74-106); Potassium 4.8 mmol/L (3.5-5.1); Sodium Level 138 mmol/L (136-145)
[2022-05-18 08:37] VITALS: BP 134/88; PULSE 74; RESP 16; TEMP 36.1; O2SAT 100
[2022-05-18] MEDS: Senna/Docusate Sodium 1 Tablet 2 TABLET PO (08:48)
[2022-05-18] MEDS: Lisinopril 10 MG Tablet PO (08:48)
[2022-05-18] MEDS: DULoxetine Hcl 60 MG Capsule PO (08:48)
[2022-05-18] MEDS: Ensure Surgery 237 ML LIQUID PO (08:48)
[2022-05-18] MEDS: Famotidine 20 MG Tablet PO (08:48)
[2022-05-18] MEDS: Pantoprazole Sodium 40 MG Tablet PO (08:48)
[2022-05-18] MEDS: metFORMIN HCl 500 MG Tablet PO (08:48)
[2022-05-18] MEDS: Aspirin 81 MG TAB.CHEW PO (08:48)
--- NOTE | 2022-05-18 08:48 | PN.ORTHO_ITS ---
Subjective Subjective Patient is s/p left sided total hip arthroplasty with Dr. Vaca on 05/17/2022. Patient resting comfortably in bed. hip does not hurt. only complains of left knee pian. Rates pain 7/ 10 at rest. With movement 9/10. States taking Tylenol meloxicam and oxycodone as needed and ice help to relieve pain. Patient has been up with therapy. Walking with the assit of a walker. Afebrile, no chest pain, shortness of breath, negative calf pain/ erythema, and no other signs of DVT. Patient continues to complain of left knee pain, which has been present since evaluation with Dr. Lucero. She states she can hear cracking in her knee and still is concerned. she is s/p L TKA, has had xrays in office with Dr. Nola schmidt [facility] revealed stable implants. she is concerned wanting an MRI. She states her knee pain is no worse since surgery , however is a continued 8-02/18. She states the hip does not hurt her whatsoever compaired to her knee pain. Objective Data Objective Data Vital Signs: Vital Signs Temp Pulse Resp BP Pulse Ox O2 Del Method O2 Flow Rate 97 F L 74 16 134/88 H 100 Room Air 4 05/18/22 08:37 05/18/22 08:37 05/18/22 08:37 05/18/22 08:37 05/18/22 08:37 05/18/22 08:42 05/17/22 18:51 Oxygen Flow Rate (L/min) 4 Oxygen Delivery Method Room Air Weight: 85 kg Body Mass Index (BMI) 31.1 Intake & Output: Intake and Output for Last 24 Hours 05/16/22 05/17/22 05/18/22 23:59 23:59 23:59 Intake Total 4524 / 4524 50 / 50 Output Total 200 / 200 Balance 4324 / 4324 50 / 50 Lab / Micro Data Result Diagrams: 05/18/22 06:28 05/18/22 06:28 Labs: Laboratory Results - last 24 hr 05/17/22 11:01: POC Glucose 97 05/17/22 15:27: POC Glucose 192 H 05/17/22 18:08: POC Glucose 253 H 05/17/22 22:12: POC Glucose 263 H 05/18/22 06:08: POC Glucose 116 H 05/18/22 06:28: WBC 18.3 H, RBC 3.86 L, Hgb 11.8 L, Hct 36.4 L, MCV 94.3, MCH 30.6, MCHC 32.4, RDW Std Deviation 45.8 H, RDW Coeff of Cedric 13.3, Plt Count 361, MPV 10.0 05/18/22 06:28: Sodium 138, Potassium 4.8, Chloride 105, Carbon Dioxide 27.0, Anion Gap 6, BUN 11, Creatinine 0.68, Estim Creat Clear Calc 82.14, Est GFR (MDRD) Af Amer 115, Est GFR (MDRD) Non-Af 95, BUN/Creatinine Ratio 16.2, Glucose 113 H, Calcium 9.3 Micro: Microbiology 05/02/22 14:39 Swab (Method) Nasal Screen MRSA/MSSA - Final Radiography Diagnostic Testing: Radiology Impression Hip/Pelvis X-Ray 05/17/22 12:05 IMPRESSION: Intraoperative imaging provided for left total hip replacement. Electronically Signed: Logan Upton MD at 15:43 EST , Hip X-Ray 05/17/22 14:05 IMPRESSION: Status post left total hip replacement. There is good alignment. Electronically Signed: Logan Upton MD at 14:42 EST , Physical Exam Narrative Patient resting comfortably in bed No signs of acute distress Satting well on room air Limb is warm to touch, Sensation intact throughout entire lower extremity, including saphenous, sural, superficial and deep peroneal, and tibial distribution. DP/PT pulses bounding. Dorsiflexion plantarflexion strength 5/5 Dressing incision clear, dry , intact. Calf nontender to palpation, no erythema, no edema. Negative Homans Assessment & Plan Assessment/Plan (1) S/P total left hip arthroplasty: PLAN: Patient is status post left total hip arthroplasty with Dr. Vaca 05/17/2022 1. Will continue PT today. Weightbearing as tolerated 2. plan for discharge this afternoon following PT 3. Patient will follow up for post op appointment on 06/01/22 4. Patient has outpatient PT appointment on 05/22/22 5. WBC 18.3 acute reactive leukocytosis: secondary to pre operative decadron. no acute systemic signs of infection. will monitor, and likely self resolve. 6. H/H 11.8/36.4: post operavtive anemia secondary to acute blood loss int raoperatively. Patient is asymptomatic at this time. No intraoperative complications. will continue to monitor. no acute interventions. 7. DVT prophylaxis : Aspirin 81 mg twice daily x4 weeks 8. Pain control: patient instructed to take tylenol 500mg 2 tablets TID. and oxycodone 1-2 tablets every 4-6 hours only as needed for pain control. 9. Patient also given a prescription of meloxicam for pain control, Pepcid for ulcer prophylaxis. 10. ok to remove post op dressing. post op day 5 As far as her knee pain goes Dr. Vaca is aware of this. We will continue surveillance. I encouraged her to continue to try to give this time with pain medication and ice and working with physical therapy. I did explain her gait could have been significantly affected due to the severity of her hip oste oarthritis. She understood. I did explain to her if her knee pain does not subside or continued pain after going home she can call our office to be seen sooner than her postop appointment if needed.
--- NOTE | 2022-05-18 09:10 | PCM.PN.HOSP ---
Subjective Subjective Complains about her left knee which has been an issue since 2019. States that is never been right and just hurts. States it hurts after surgery and after she saw a spine surgeon who manipulated her knee. States that she does know how she can do therapy if her knee hurt so bad. States that her left hip is not bothering her as much as her left knee. Objective Data Objective Data Vital Signs: Vital Signs Temp Pulse Resp BP Pulse Ox O2 Del Method O2 Flow Rate 36.1 C L 74 16 134/88 H 100 Room Air 4 05/18/22 08:37 05/18/22 08:37 05/18/22 08:37 05/18/22 08:37 05/18/22 08:37 05/18/22 08:42 05/17/22 18:51 Oxygen Flow Rate (L/min) 4 Oxygen Delivery Method Room Air Weight: 85 kg Body Mass Index (BMI) 31.1 Intake & Output: Intake and Output for Last 24 Hours 05/16/22 05/17/22 05/18/22 23:59 23:59 23:59 Intake Total 4524 / 4524 50 / 50 Output Total 200 / 200 Balance 4324 / 4324 50 / 50 Lab / Micro Data Result Diagrams: 05/18/22 06:28 05/18/22 06:28 Labs: Laboratory Results - last 24 hr 05/17/22 11:01: POC Glucose 97 05/17/22 15:27: POC Glucose 192 H 05/17/22 18:08: POC Glucose 253 H 05/17/22 22:12: POC Glucose 263 H 05/18/22 06:08: POC Glucose 116 H 05/18/22 06:28: WBC 18.3 H, RBC 3.86 L, Hgb 11.8 L, Hct 36.4 L, MCV 94.3, MCH 30.6, MCHC 32.4, RDW Std Deviation 45.8 H, RDW Coeff of Cedric 13.3, Plt Count 361, MPV 10.0 05/18/22 06:28: Sodium 138, Potassium 4.8, Chloride 105, Carbon Dioxide 27.0, Anion Gap 6, BUN 11, Creatinine 0.68, Estim Creat Clear Calc 82.14, Est GFR (MDRD) Af Amer 115, Est GFR (MDRD) Non-Af 95, BUN/Creatinine Ratio 16.2, Glucose 113 H, Calcium 9.3 Micro: Microbiology 05/02/22 14:39 Swab (Method) Nasal Screen MRSA/MSSA - Final Radiography Diagnostic Testing: Radiology Impression Hip/Pelvis X-Ray 05/17/22 12:05 IMPRESSION: Intraoperative imaging provided for left total hip replacement. Electronically Signed: Logan Upton MD at 15:43 EST , Hip X-Ray 05/17/22 14:05 IMPRESSION: Status post left total hip replacement. There is good alignment. Electronically Signed: Logan Upton MD at 14:42 EST , Physical Exam Const alert and no apparent distress Extremity Extremity Narrative: Left knee had some crepitus but no effusions, no warmth. Patient did have some tenderness palpation around the patella. Assessment & Plan Assessment/Plan (1) Left knee pain: QUALIFIERS: Chronicity: chronic Qualified Code(s): M25.562 - Pain in left knee; G89.29 - Other chronic pain PLAN: This is chronic Patient states that this happened after left knee replacement is never gotten any better. Informed her that I will have any overt can signs that this is actually infected Will defer further management and evaluation to orthopedics But for the patient to be engaged with therapy we will work on optimizing pain medications. Continue with scheduled acetaminophen at 1000 mg 3 times daily, meloxicam 7.5 mg twice jonh, oxycodone 5-10 every 4 hours, Cymbalta 60 mg daily.. I will add Lidoderm patch. (2) Diabetes: QUALIFIERS: Diabetes mellitus type: type 2 Diabetes mellitus group home insulin use: without intermediate project manager use Diabetes mellitus complication status: without complication Qualified Code(s): E11.9 - Type 2 diabetes mellitus without complications PLAN: Well-controlled A1c is 6 Continue with metformin Agree with sliding scale insulin though I do not feel the patient will require sliding-scale insulin upon discharge (3) Graves' disease: PLAN: From April, patient's TSH was normal at 0.9 and her free T4 was normal at 1.06. No need for any treatment at this time but will need follow-up with primary care physician for further monitoring to see if patient does become hypothyroid at some point (4) S/P total left hip arthroplasty: PLAN: Defer management to orthopedics VTE prophylaxis with aspirin twice daily PLAN: Plan Medically stable for discharge. I have reconciled the patient's home medications with the exception of her oxycodone, meloxicam. I have changed her acetaminophen from as needed to scheduled. Charges/Coding Visit Charges OBSV E&M: 25974 Subsequent observation care L2
--- NOTE | 2022-05-18 09:33 | DCINST_ITS ---
Discharge Instructions Diet Discharge Diet: No restrictions Activity Discharge Activity: Return to Normal Activity and May Not Drive Weight Bearing Status: Weight bearing as tolerated Dressing / Incision Call your doctor if your incision/area has: Continuous Slow Oozing, Sudden Increased Bleeding, Increased Pain/ Swelling, Increased Redness, Foul Smelling Discharge and Swelling at the incision site Call your doctor if you observe: Fever of 101 or Higher, Shortness of breath, Chest pain and Calf discomfort Remove Dressing in: 5 days Cleanse incision/area with: Soap & Water and Keep Dressing Clean & Dry Follow Up Care Test Results: Test results from this visit will be discussed in further detail at your follow- up appointment, if applicable. Discharge Plan Admission Admit Date/Time: 05/17/22 13:45 Attending Provider: Heriberto Vaca Primary Care Provider: Rufino Tanner Consulting Providers: Jose Moyer Discharge Orders/Prescriptions Prescriptions: Continued albuterol sulfate 90 mcg/actuation HFA aerosol inhaler 2 puff INHALATION Q4H PRN (Reason: Asthma) lisinopril 10 mg tablet 10 mg PO DAILY Label Comments: TAKE 1 TABLET BY MOUTH EVERY DAY duloxetine 60 mg capsule,delayed release(DR/EC) 60 mg PO BID pantoprazole 40 mg tablet,delayed release (DR/EC) 40 mg PO DAILY cholecalciferol (vitamin D3) 125 mcg (5,000 unit) tablet 5,000 ea PO DAILY Label Comments: TAKE 1 TABLET BY MOUTH EVERY DAY metformin 500 mg Tablet 500 mg PO BID Changed acetaminophen 500 mg tablet 1,000 mg PO TID Qty: 30 0RF Rx Instructions: Do not take more than 3000 mg Tylenol in a 24-hour period. No Action meloxicam 7.5 mg tablet 7.5 mg PO BID Label Comments: TAKE 1 TABLET BY MOUTH TWICE A DAY oxycodone 5 mg Tablet 5 - 10 mg PO Q4H PRN PRN (Reason: Pain Score 4-10) 5 Days Qty: 60 0RF Referrals / Follow Up: Rufino Tanner DO [Primary Care Provider] -
--- NOTE | 2022-05-18 09:52 | CASEMGMT ---
RN CHRIS NOTE: Intro role of CM to patient and GARCIA form explained re: Observation status for treatment of left total hip replacement. Explained hospitalization will be paid per her insurance policy for Outpatient billing and condition will continue to be evaluated for Inpt necessity. Also let pt know that [facility] sends paper in the billing packet with their phone number if questions arise. Discussed Pharmacy section of GARCIA form and self administered medication guideline. Pt verbalizes understanding and does not have further questions. Form signed, copy made and placed in chart, and original given to pt. Pt sitting up in recliner chair. She confirms discharge plan is still to discharge home and plans to go to [facility] for therapy, with 1st appt scheduled for 05/22. She states therapy has worked w/her this morning and went over doing stairs. She feels she did really well and has no concerns w/discharging home. She denies any discharge needs or concerns. Yamilex TAVARES RN, CM
== END 2022-05-18 11:15 | disposition home or self-care (01) ==
LOC: SDC 05-18 07:13 → MS3 05-18 09:12
PROVIDERS: Anesthesiology; Admitting Provider Specialist; PCP Student in an Organized Health Care Education/Training Program; Referring Provider Specialist; Visit Provider Specialist
PROC: (CPT 27284; principal; 2022-05-17 12:40)
DX: M16.12 Unilateral primary osteoarthritis, left hip (principal); E11.9 Type 2 diabetes mellitus without complications; M17.12 Unilateral primary osteoarthritis, left knee; I10 Essential (primary) hypertension; E05.00 Thyrotoxicosis with diffuse goiter without thyrotoxic crisis or storm; Z79.84 Long term (current) use of oral hypoglycemic drugs; Z96.652 Presence of left artificial knee joint; F17.210 Nicotine dependence, cigarettes, uncomplicated; Z79.891 Long term (current) use of opiate analgesic; D62 Acute posthemorrhagic anemia
CPT/HCPCS: 29915; 01202; 36415; 71046; 73501; 73502; 76000; 80048; 82040; 82962; 83036; 83735; 84443; 85025; 85027; 85652; 86140; 87081; 88305; 88311; 96365; 96366; 96375; 96376; 97162; 97166; 99218; 99251; C1776; J7120; G0378; G0463; J2405